=== PATIENT | female | born 1960 | race Caucasian/White ===

== ENCOUNTER → 2016-07-12 | Outpatient (CLI) | payer OTHER ==
[~2016-07-12] MED LIST: FLEXERIL PO; GASTROGRAFIN SOLUTION 30ML (Q9963) As Ordered ONE; ISOVUE-370 76% 100ML VIAL (Q9967) As Ordered ONE; MULTTAB PO; NATU400T PO; WELBUTRIN PO
--- NOTE | 2016-07-13 00:48 | REP ---
Clinical: Generalized abdominal pain. Technique: Axial precontrast, contrast enhanced, and delayed images of the abdomen using oral and 100 ml Isovue 370 intravenous contrast material with coronal and sagittal re-formations. Comparison: 09/10/2007. Findings: The lung bases demonstrate scattered relatively new areas of fibroatelectatic change - some of which specifically in the right middle lobe and lingula have a subtle nodular appearance and may warrant 3-month follow-up chest CT. Liver, spleen, pancreas, bilateral adrenal glands are normal. Kidneys demonstrate stable cortical scarring along the medial aspect of the right kidney as well as scarring and atrophic changes involving the mid to upper pole of the left kidney with 3 cm left renal cyst. The visualized enteric system including stomach and much of the small and large bowel appears normal. Impression: 1. Lung bases demonstrate relatively new areas of fibro atelectatic changes with nodular components at the lingula and right middle lobe. 3-month follow-up chest CT may be warranted. 2. Abdomen appears stable and without acute pathology. Chronic changes include renal scarring and prior cholecystectomy. Signed by Keith Pacheco MD 07/13/2016 12:39 A
== END | disposition home or self-care (01) ==
LOC: M RAD 14:31
PROVIDERS: ATTEND Physician Assistant Medical
DX: J98.4 Other disorders of lung (principal)
CPT/HCPCS: 74170; Q9963; Q9967

== ENCOUNTER → 2016-07-25 | Outpatient (CLI) | payer OTHER ==
[~2016-07-25] MED LIST changes: +BREO1INH INH; +COLA100C PO; -GASTROGRAFIN SOLUTION 30ML (Q9963) As Ordered ONE; +HYDR-4274 PO; -ISOVUE-370 76% 100ML VIAL (Q9967) As Ordered ONE; +LISI10TA4 PO; +OMEP40CA2 PO; +VARE1TA PO; +migraine med
--- NOTE | 2016-07-25 09:01 | REP ---
CT chest without contrast, 07/25/2016: Indication: New areas of fibroatelectatic changes in the right middle lobe and lingula changed on CT, former smoker, COPD, exclude mass. Comparison : CT abdomen and pelvis 07/12/2016 which includes lung bases in field of view, as well as PA and lateral chest 07/04/2016 and 04/30/2012. Technique: 3 mm contiguous spiral axial sections were performed through the chest without contrast. Sagittal and coronal reconstructed images also provided for interpretation. Findings: The thoracic aorta is without aneurysm. The heart is of normal size. There are no coronary artery calcifications. There are no pathologically enlarged mediastinal or hilar lymph nodes. There is moderate hyperinflation and flattening of diaphragms consistent with COPD. 4 mm posterior segment right upper lobe triangular density most compatible with scarring. Small amount of fibroatelectatic changes are seen in the right middle lobe and lingula. 8 x 3 mm irregular density in the lingula is most compatible with scarring. Small amount of fibroatelectatic changes are seen within the posterior segment right upper lobe. Small noncalcified nodule within the lateral basilar segment left lower lobe on image 79 series 201 is unchanged from 07/12/2016. . Small amount of fibroatelectatic changes are noted in lung bases. Visualized portions of the liver, spleen, pancreas are unremarkable. There has been a prior cholecystectomy. Adrenal glands are normal. Left kidney is mostly omitted from view yet is hypoplastic/atrophic in its visualized portions. There are some epidural calcifications within the thoracic thecal sac at L1, T10, T9. Impression:1. Moderate COPD with bibasilar fibroatelectatic changes. 2. 3 mm noncalcified pulmonary nodule lateral basilar segment left lower lobe; 4 mm superior segment posterior apical lower lobe triangular density on image 22 series 201. 8 x 3 mm irregular lingular density. Recommend follow-up CT chest in 3 months for re-evaluation. 3. Atrophic changes within the visualized portions of left kidney. 4. Areas of epidural calcification in thecal sac at L1, T10, T9, likely sequela of old infection or dystrophic calcification. Patient states she had previous hydrocephalus with shunt. Signed by Clarisse Pinto MD 07/25/2016 08:49 P
== END | disposition home or self-care (01) ==
LOC: M RAD 06:49
PROVIDERS: ATTEND Physician Assistant Medical
DX: J44.9 Chronic obstructive pulmonary disease, unspecified (principal); R91.1 Solitary pulmonary nodule

== ENCOUNTER → 2016-07-26 | Outpatient (REF) | payer OTHER ==
[2016-07-26 14:12] LABS: FOLATE 9.6 NG/ML
[2016-07-26 14:26] LABS: FREE T4 1.02 NG/DL (0.76-1.46)
[2016-07-29 08:06] LABS: VITAMIN E LEVEL 9.3 mg/L (5.3-16.8)
== END | disposition home or self-care (01) ==
LOC: M LABNEURO 13:07
PROVIDERS: ATTEND Psychiatry & Neurology Neurology
DX: G43.909 Migraine, unspecified, not intractable, without status migrainosus (principal); G62.9 Polyneuropathy, unspecified

== ENCOUNTER → 2016-08-01 | Day surgery (SDC) | payer OTHER ==
[~2016-08-01] VITALS: Ht 157.5 cm; Wt 66.7 kg
[~2016-08-01] MED LIST changes: +LIDOCAINE 1% MDV 20ML VIAL As Ordered ONE; +LR 1,000 ML IV SCH; +MIDAZOLAM INJ 2 MG/2 ML VIAL (J2250) As Ordered ONE; +ZONI25CA2 PO; +fentaNYL 100 MCG/2 ML INJECTION (J3010) As Ordered ONE
--- NOTE | 2016-08-01 13:29 | RO ---
DATE OF PROCEDURE: 08/01/2016 PREOPERATIVE DIAGNOSIS: Endometrial polyp. POSTOPERATIVE DIAGNOSIS: Endometrial polyp. PROCEDURE: Hysteroscopy, dilation and curettage (D and C). SURGEON: Sukhwinder Walker MD AZURE DEVELOPER: ANESTHESIA: Local with sedation. ESTIMATED BLOOD LOSS: Minimal. FINDINGS: Normal appearing endometrial cavity with the exception of a small anterior fundal endometrial polyp. Uterus was retroverted, normal size and shape. OPERATIVE SUMMARY: The patient taken to the operating room where IV sedation was given. She was prepped and draped in sterile fashion in the dorsal lithotomy position. Speculum was placed in the vagina. The cervix was injected circumferentially with 20 mL of 1% lidocaine. The anterior lip of the cervix was grasped with a tenaculum. The cervix was dilated with tapered dilators. A diagnostic hysteroscope using normal saline as the distention media was placed through the internal os. Visualization of the endometrial cavity revealed findings noted above. Sharp curettage was performed and the specimen, including the polyp, was sent to pathology. All instruments were removed. Polyp appeared to fragment upon curettage. All instruments removed. Sponge and instrument counts were correct.
[2016-08-01 13:38] VITALS: BP 152/78
--- NOTE | 2016-08-01 18:34 | ECGEPIP ---
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
== END ==
LOC: M SDC 10:57
PROVIDERS: ATTEND Specialist
DX: N84.0 Polyp of corpus uteri (principal); I10 Essential (primary) hypertension; K21.9 Gastro-esophageal reflux disease without esophagitis; J44.9 Chronic obstructive pulmonary disease, unspecified; Z91.040 Latex allergy status; Z88.1 Allergy status to other antibiotic agents; Z88.0 Allergy status to penicillin; Z88.2 Allergy status to sulfonamides; Z88.8 Allergy status to other drugs, medicaments and biological substances; Z79.899 Other long term (current) drug therapy; Z87.891 Personal history of nicotine dependence
CPT/HCPCS: 36415; 58558; 85014; 85018; 88305; 93005; J2250; J3010

== ENCOUNTER → 2016-11-09 | Outpatient (CLI) | payer OTHER ==
[~2016-11-09] MED LIST changes: -COLA100C PO; +COLA100C3 PO; +ISOVUE-370 76% 100ML VIAL (Q9967) As Ordered ONE; -LIDOCAINE 1% MDV 20ML VIAL As Ordered ONE; -LR 1,000 ML IV SCH; -MIDAZOLAM INJ 2 MG/2 ML VIAL (J2250) As Ordered ONE; -fentaNYL 100 MCG/2 ML INJECTION (J3010) As Ordered ONE
--- NOTE | 2016-11-10 06:02 | REP ---
Clinical: Follow-up pulmonary nodules. Technique: Axial contrast enhanced images from the thoracic inlet to the upper abdomen using 100 ml Isovue 370 intravenous contrast material with coronal and sagittal re-formations. Comparison: 07/25/2016. Findings: The bilateral lung dotson are relatively well aerated and symmetric, scattered chronic, age-related fibroatelectatic changes are noted predominantly within the right middle lobe and right lower lobe. Minimal chronic emphysematous changes with small scattered bullae are again identified. Previously noted posterior right upper lobe 4 mm density is unchanged and likely represent scarring. Previously identified lingular 7 mm density is unchanged and likely represent scarring. The 3 mm density in the periphery of the left lower lobe was identified on 2007 and now appears minimally calcified suggesting chronic granuloma/scarring. A new 3 mm nodules identified in the posterior periphery of the right upper lobe (image 28) which in all likelihood represents similar chronic progressive changes. No further acute consolidation, significant nodule or mass lesion is appreciated. No pleural effusion/reaction. No pneumothorax. Tracheobronchial tree is patent. Mediastinum demonstrates normal thoracic aorta and heart/pericardium. Surrounding musculoskeletal structures are intact. Thyroid gland is normal. Impression: In all likelihood, and the above-mentioned small scattered densities measuring up to 7 mm likely represent progressive chronic changes. Consider follow-up examination at 9-12 months. Signed by Keith Pacheco MD 11/10/2016 05:53 A
== END ==
LOC: M RAD 16:55
PROVIDERS: ATTEND Physician Assistant Medical
DX: R91.8 Other nonspecific abnormal finding of lung field (principal)
CPT/HCPCS: 71260; Q9967

== ENCOUNTER → 2016-12-30 | Outpatient (CLI) | payer OTHER ==
[~2016-12-30] VITALS: Ht 157.5 cm; Wt 67.1 kg
[~2016-12-30] MED LIST changes: +AMIT50TA PO; +BENA25CA4 PO; +COZA50TA PO; -ISOVUE-370 76% 100ML VIAL (Q9967) As Ordered ONE; +LIDOCAINE 2% INJ 100 MG/5 ML SDV (FOR ANES.) As Ordered ONE; +MIRA33504 PO; +NS 1,000 ML IV ONE; +PROA1AER INH; +PROPOFOL 200 MG/20 ML VIAL As Ordered ONE; +PROT1TAB2 PO; +fentaNYL 100 MCG/2 ML INJECTION (J3010) As Ordered ONE
--- NOTE | 2016-12-30 16:05 | ROOR ---
Patient Name: Sherry Traylor Procedure Date: 12/30/2016 3:50 PM Date of : 1960 Age: 56 Room: [facility] Gender: Female Note Status: Finalized Procedure: Upper GI endoscopy Indications: Dysphagia, Heartburn-resolved on PPI therapy Providers: Cecil MITTAL MD Referring MD: RAFI SANDHU Requesting Provider: Medicines: Monitored Anesthesia Care Complications: No immediate complications. Procedure: Pre-Anesthesia Assessment: - The heart rate, respiratory rate, oxygen saturations, blood pressure, adequacy of pulmonary ventilation, and response to care were monitored throughout the procedure. The Endoscope was introduced through the mouth, and advanced to the second part of duodenum. The upper GI endoscopy was accomplished without difficulty. The patient tolerated the procedure well. Findings: The esophagus was normal. (overall smaller caliber esophagus, but no strictures) The stomach was normal. The examined duodenum was normal. Impression: - Normal esophagus. - Normal stomach. - Normal examined duodenum. - No specimens collected. Recommendation: - Continue present medications.- Use Protonix (pantoprazole) 40 mg PO daily. - Follow an antireflux regimen. - Observe patient's clinical course. - Chew food well, drink plenty of liquids with meals. If applicable, use well fitting dentures for adequate chewing. Cecil Mittal MD Cecil MITTAL MD 12/30/2016 4:04:43 PM This report has been signed electronically. Number of Addenda: 0 Note Initiated On: 12/30/2016 3:50 PM Estimated Blood Loss: Estimated blood loss: none.
--- NOTE | 2016-12-30 16:22 | ROOR ---
Patient Name: Sherry Traylor Procedure Date: 12/30/2016 3:51 PM Date of : 1960 Age: 56 Room: [facility] Gender: Female Note Status: Finalized Procedure: Colonoscopy Indications: Generalized abdominal pain, Constipation Providers: Cecil MITTAL MD Referring MD: RAFI SANDHU Requesting Provider: Medicines: Monitored Anesthesia Care Complications: No immediate complications. Procedure: Pre-Anesthesia Assessment: - The heart rate, respiratory rate, oxygen saturations, blood pressure, adequacy of pulmonary ventilation, and response to care were monitored throughout the procedure. The Colonoscope was introduced through the anus and advanced to 4 cm into the ileum. The colonoscopy was performed without difficulty. The patient tolerated the procedure well. The quality of the bowel preparation was good. Findings: The perianal and digital rectal examinations were normal. A 4 mm polyp was found in the sigmoid colon. The polyp was sessile. The polyp was removed with a cold snare. Resection and retrieval were complete. Multiple medium-mouthed diverticula were found in the sigmoid colon. Internal hemorrhoids were found during retroflexion. The hemorrhoids were moderate. The colon exam was otherwise without abnormality on direct and retroflexion views. The terminal ileum appeared normal. Impression: - The examined portion of the ileum was normal. - One 4 mm polyp in the sigmoid colon, removed with a cold snare. Resected and retrieved. - Mild diverticulosis in the sigmoid colon. - Moderate Internal hemorrhoids. - The colonoscopy was otherwise normal on direct and retroflexion views. Recommendation: - Repeat colonoscopy in 5 years for surveillance. - Telephone endoscopist for pathology results in 2 weeks. - Continue present medications. Cecil Mittal MD Cecil MITTAL MD 12/30/2016 4:22:04 PM This report has been signed electronically. Number of Addenda: 0 Note Initiated On: 12/30/2016 3:51 PM Estimated Blood Loss: Estimated blood loss: none.
[2016-12-30 16:40] VITALS: BP 107/42
== END ==
LOC: M OPP 13:30
PROVIDERS: ATTEND Internal Medicine Gastroenterology
DX: R10.84 Generalized abdominal pain (principal); K57.30 Diverticulosis of large intestine without perforation or abscess without bleeding; D12.5 Benign neoplasm of sigmoid colon; K64.8 Other hemorrhoids; K59.00 Constipation, unspecified; R13.10 Dysphagia, unspecified; R12 Heartburn; I10 Essential (primary) hypertension; K21.9 Gastro-esophageal reflux disease without esophagitis; J44.9 Chronic obstructive pulmonary disease, unspecified; F41.9 Anxiety disorder, unspecified; L27.8 Dermatitis due to other substances taken internally; Z79.899 Other long term (current) drug therapy; Z87.891 Personal history of nicotine dependence; Z88.0 Allergy status to penicillin; Z88.1 Allergy status to other antibiotic agents; Z88.2 Allergy status to sulfonamides; Z91.040 Latex allergy status
CPT/HCPCS: 43235; 45385; 88305; J3010

== ENCOUNTER → 2017-02-04 | Outpatient (CLI) | payer OTHER ==
[~2017-02-04] MED LIST changes: -COLA100C3 PO; +COLA100C5 PO; -HYDR-4274 PO; +HYDR50TA70 PO; -LIDOCAINE 2% INJ 100 MG/5 ML SDV (FOR ANES.) As Ordered ONE; -NS 1,000 ML IV ONE; -PROA1AER INH; +PROAAER10 INH; -PROPOFOL 200 MG/20 ML VIAL As Ordered ONE; -fentaNYL 100 MCG/2 ML INJECTION (J3010) As Ordered ONE
[2017-02-04 08:36] LABS: BASO # 0.1 K/mm3 (0.0-0.2); BASO % 0.9 % (0.0-1.0); EOS # 0.4 K/mm3 (0.0-0.50); EOS % 5.5 % (0.0-3.0); LARGE UNSTAINED CELL # 0.2 K/mm3 (0.0-0.4); LARGE UNSTAINED CELL % 2.1 % (0.0-4.0); MEAN CORPUSCULAR HEMOGLOBIN 32.4 pg (27.0-33.0); MEAN CORPUSCULAR HGB CONC 34.7 g/dl (32.0-36.5); MEAN CORPUSCULAR VOLUME 93.5 fl (80.0-96.0); MONO # 0.4 K/mm3 (0.0-0.8); NEUTROPHILS # 5.2 K/mm3 (1.8-7.7); NEUTROPHILS % 63.5 % (36.0-66.0); PLATELET COUNT, AUTOMATED 386 k/mm3 (150-450); WHITE BLOOD COUNT 8.2 K/mm3 (4.0-10.0)
[2017-02-04 09:13] LABS: ALBUMIN 3.4 GM/DL (3.2-5.2); ALBUMIN/GLOBULIN RATIO 1.06 (1.00-1.93); ALKALINE PHOSPHATASE 161 U/L (45-117); ALT/SGPT 34 U/L (12-78); ANION GAP 9 MEQ/L (8-16); AST/SGOT 20 U/L (15-37); BILIRUBIN,TOTAL 0.2 MG/DL (0.2-1.0); BLOOD UREA NITROGEN 16 MG/DL (7-18); CALCIUM LEVEL 8.7 MG/DL (8.5-10.1); CARBON DIOXIDE LEVEL 27 MEQ/L (21-32); CHLORIDE LEVEL 103 MEQ/L (98-107); CHOLESTEROL LEVEL 178 MG/DL (<200); CREATININE FOR GFR 0.84 MG/DL (0.55-1.02); GLOMERULAR FILTRATION RATE > 60.0 (>51); GLUCOSE, FASTING 88 MG/DL (70-105); POTASSIUM SERUM 4.1 MEQ/L (3.5-5.1); SODIUM LEVEL 139 MEQ/L (136-145); TOTAL PROTEIN 6.6 GM/DL (6.4-8.2); TRIGLYCERIDES LEVEL 97 MG/DL (<150)
== END ==
LOC: M LAB 07:40
PROVIDERS: ATTEND Physician Assistant Medical
DX: I10 Essential (primary) hypertension (principal)

== ENCOUNTER → 2017-07-13 | Outpatient (REF) | payer OTHER ==
[2017-07-13 12:42] LABS: BASO # 0.1 10^3/uL (0.0-0.2); BASO % 1.4 % (0.0-1.0); EOS # 0.4 10^3/uL (0.0-0.50); HEMATOCRIT 44.3 % (36.0-47.0); HEMOGLOBIN 14.8 g/dl (12.0-16.0); IMMATURE GRANULOCYTE % 0.2 % (0-0); LYMPH # 1.7 10^3/uL (1.5-4.5); LYMPH % 27.3 % (24.0-44.0); MEAN CORPUSCULAR HEMOGLOBIN 31.7 pg (27.0-33.0); MEAN CORPUSCULAR HGB CONC 33.4 g/dl (32.0-36.5); MEAN CORPUSCULAR VOLUME 94.9 fl (80.0-96.0); MONO # 0.5 10^3/uL (0.0-0.8); MONO % 7.8 % (0.0-5.0); NEUTROPHILS # 3.5 10^3/uL (1.8-7.7); NEUTROPHILS % 56.3 % (36.0-66.0); PLATELET COUNT, AUTOMATED 435 10^3/uL (150-450); RED BLOOD COUNT 4.67 10^6/uL (4.00-5.40); WHITE BLOOD COUNT 6.3 10^3/uL (4.0-10.0)
[2017-07-13 13:00] LABS: ALBUMIN 3.5 GM/DL (3.2-5.2); ALBUMIN/GLOBULIN RATIO 0.95 (1.00-1.93); ALKALINE PHOSPHATASE 143 U/L (45-117); ALT/SGPT 24 U/L (12-78); ANION GAP 5 MEQ/L (8-16); AST/SGOT 16 U/L (7-37); BILIRUBIN,TOTAL 0.5 MG/DL (0.2-1.0); BLOOD UREA NITROGEN 17 MG/DL (7-18); CALCIUM LEVEL 8.8 MG/DL (8.5-10.1); CARBON DIOXIDE LEVEL 27 MEQ/L (21-32); CHLORIDE LEVEL 108 MEQ/L (98-107); CHOLESTEROL LEVEL 170 MG/DL (<200); CHOLESTEROL RISK RATIO 3.541 (<5); CREATININE FOR GFR 0.82 MG/DL (0.55-1.02); GLOMERULAR FILTRATION RATE > 60.0 (>51); GLUCOSE, FASTING 84 MG/DL (70-105); HDL CHOLESTEROL 48 MG/DL (>40); LDL CHOLESTEROL 105.4 MG/DL (<100); NON-HDL-C 122 MG/DL; POTASSIUM SERUM 4.6 MEQ/L (3.5-5.1); SODIUM LEVEL 140 MEQ/L (136-145); TOTAL PROTEIN 7.2 GM/DL (6.4-8.2); TRIGLYCERIDES LEVEL 83 MG/DL (<150)
== END ==
LOC: M LABDRAW1 10:42
DX: E78.2 Mixed hyperlipidemia (principal); G47.00 Insomnia, unspecified

== ENCOUNTER → 2017-08-18 | Outpatient (CLI) | payer OTHER | LOC: M PAIN 09:45 | DX: M54.5 Low back pain (principal); G89.29 Other chronic pain; M47.816 Spondylosis without myelopathy or radiculopathy, lumbar region; M47.817 Spondylosis without myelopathy or radiculopathy, lumbosacral region; M51.16 Intervertebral disc disorders with radiculopathy, lumbar region; I10 Essential (primary) hypertension; F17.210 Nicotine dependence, cigarettes, uncomplicated; J44.9 Chronic obstructive pulmonary disease, unspecified; Z79.82 Long term (current) use of aspirin; Z79.891 Long term (current) use of opiate analgesic; Z79.899 Other long term (current) drug therapy; Z88.0 Allergy status to penicillin; Z88.1 Allergy status to other antibiotic agents; Z88.2 Allergy status to sulfonamides; Z88.8 Allergy status to other drugs, medicaments and biological substances; Z91.013 Allergy to seafood | CPT/HCPCS: G0463 ==

== ENCOUNTER → 2017-08-29 | Outpatient (REF) | LOC: M SMT 13:29 | DX: M54.5 Low back pain (principal) ==

== ENCOUNTER → 2017-10-17 | Outpatient (CLI) | payer OTHER, MEDICAID | LOC: M PAIN 13:30 | DX: M54.5 Low back pain (principal); G89.29 Other chronic pain; I10 Essential (primary) hypertension; F41.9 Anxiety disorder, unspecified; F17.210 Nicotine dependence, cigarettes, uncomplicated; Z79.51 Long term (current) use of inhaled steroids; Z79.82 Long term (current) use of aspirin; Z79.891 Long term (current) use of opiate analgesic; Z79.899 Other long term (current) drug therapy; Z88.0 Allergy status to penicillin; Z88.2 Allergy status to sulfonamides; Z88.8 Allergy status to other drugs, medicaments and biological substances; Z91.013 Allergy to seafood | CPT/HCPCS: G0463 ==

== ENCOUNTER → 2017-10-31 | Outpatient (CLI) | payer OTHER ==
[2017-10-31 10:12] LABS: HEMATOCRIT 40.5 % (36.0-47.0); HEMOGLOBIN 13.8 g/dl (12.0-15.5); MEAN CORPUSCULAR HEMOGLOBIN 32.2 pg (27.0-33.0); MEAN CORPUSCULAR HGB CONC 34.1 g/dl (32.0-36.5); MEAN CORPUSCULAR VOLUME 94.6 fl (80.0-96.0); PLATELET COUNT, AUTOMATED 486 10^3/uL (150-450); RED BLOOD COUNT 4.28 10^6/uL (4.00-5.40); RED CELL DISTRIBUTION WIDTH 12.9 % (11.5-14.5); WHITE BLOOD COUNT 8.2 10^3/uL (4.0-10.0)
[2017-10-31 11:05] LABS: TOTAL 25(OH) VITAMIN D 17.6 NG/ML (30.0-100.0); TOTAL T3 107.8 NG/DL (60.0-181.0)
[2017-10-31 11:20] LABS: BLOOD UREA NITROGEN 11 MG/DL (7-18); CREATININE FOR GFR 0.86 MG/DL (0.55-1.30); GLUCOSE, FASTING 81 MG/DL (70-100)
[2017-10-31 11:21] LABS: ALBUMIN 3.1 GM/DL (3.2-5.2); ALBUMIN/GLOBULIN RATIO 0.94 (1.00-1.93); ALKALINE PHOSPHATASE 130 U/L (45-117); ALT/SGPT 39 U/L (12-78); ANION GAP 7 MEQ/L (8-16); AST/SGOT 20 U/L (7-37); BILIRUBIN,TOTAL 0.3 MG/DL (0.2-1.0); CALCIUM LEVEL 8.7 MG/DL (8.5-10.1); CARBON DIOXIDE LEVEL 26 MEQ/L (21-32); CHLORIDE LEVEL 110 MEQ/L (98-107); CHOLESTEROL LEVEL 122 MG/DL (<200); CHOLESTEROL RISK RATIO 4.206 (<5); GLOMERULAR FILTRATION RATE > 60.0 (>51); HDL CHOLESTEROL 29 MG/DL (>40); LDL CHOLESTEROL 66.6 MG/DL (<100); NON-HDL-C 93 MG/DL; POTASSIUM SERUM 3.5 MEQ/L (3.5-5.1); SODIUM LEVEL 143 MEQ/L (136-145); THYROXINE (T4) 11.2 UG/DL (4.5-12.0); TOTAL PROTEIN 6.4 GM/DL (6.4-8.2); TRIGLYCERIDES LEVEL 132 MG/DL (<150)
[2017-10-31 16:39] LABS: ESTIMATED AVERAGE GLUCOSE 128 MG/DL (60-110); HEMOGLOBIN A1c 6.1 %
== END ==
LOC: M LAB 09:29
DX: I10 Essential (primary) hypertension (principal)
CPT/HCPCS: 71046

== ENCOUNTER → 2017-11-16 | Outpatient (CLI) | payer OTHER, MEDICAID | LOC: M PAIN 09:15 | DX: M54.5 Low back pain (principal); G89.29 Other chronic pain; I10 Essential (primary) hypertension; F41.9 Anxiety disorder, unspecified; F17.210 Nicotine dependence, cigarettes, uncomplicated; Z79.51 Long term (current) use of inhaled steroids; Z79.82 Long term (current) use of aspirin; Z79.891 Long term (current) use of opiate analgesic; Z79.899 Other long term (current) drug therapy; Z88.0 Allergy status to penicillin; Z88.2 Allergy status to sulfonamides; Z88.5 Allergy status to narcotic agent; Z88.8 Allergy status to other drugs, medicaments and biological substances | CPT/HCPCS: G0463 ==

== ENCOUNTER → 2017-12-14 | Outpatient (CLI) | payer OTHER, MEDICAID | LOC: M PAIN 10:00 | DX: G89.29 Other chronic pain (principal); M54.5 Low back pain; Z79.891 Long term (current) use of opiate analgesic; I10 Essential (primary) hypertension; F41.9 Anxiety disorder, unspecified; G96.19 Other disorders of meninges, not elsewhere classified; F17.210 Nicotine dependence, cigarettes, uncomplicated; Z79.82 Long term (current) use of aspirin; Z79.899 Other long term (current) drug therapy; Z88.1 Allergy status to other antibiotic agents; Z88.2 Allergy status to sulfonamides; Z88.8 Allergy status to other drugs, medicaments and biological substances; Z88.5 Allergy status to narcotic agent | CPT/HCPCS: G0463 ==

== ENCOUNTER → 2018-01-04 | Outpatient (CLI) | payer OTHER, MEDICAID | LOC: M PAIN 11:45 | DX: M54.5 Low back pain (principal); G89.29 Other chronic pain; I10 Essential (primary) hypertension; F41.9 Anxiety disorder, unspecified; F17.210 Nicotine dependence, cigarettes, uncomplicated; Z79.82 Long term (current) use of aspirin; Z79.891 Long term (current) use of opiate analgesic; Z79.899 Other long term (current) drug therapy; Z88.1 Allergy status to other antibiotic agents; Z88.2 Allergy status to sulfonamides; Z88.5 Allergy status to narcotic agent; Z88.8 Allergy status to other drugs, medicaments and biological substances | CPT/HCPCS: G0463 ==

== ENCOUNTER 2018-04-11 00:56 | Inpatient (IN) | payer OTHER, MEDICAID ==
[2018-04-11 03:06] LABS: BASO # 0.1 10^3/uL (0.0-0.2); BASO % 0.3 % (0.0-1.0); EOS # 0.1 10^3/uL (0.0-0.50); EOS % 0.3 % (0.0-3.0); HEMATOCRIT 50.6 % (36.0-47.0); HEMOGLOBIN 17.2 g/dl (12.0-15.5); IMMATURE GRANULOCYTE % 0.5 % (0-3.0); LYMPH # 1.8 10^3/uL (1.5-4.5); MEAN CORPUSCULAR HEMOGLOBIN 31.9 pg (27.0-33.0); MEAN CORPUSCULAR VOLUME 93.9 fl (80.0-96.0); MONO % 4.8 % (0.0-5.0); NEUTROPHILS # 16.7 10^3/uL (1.8-7.7); NEUTROPHILS % 85.1 % (36.0-66.0); PLATELET COUNT, AUTOMATED 505 10^3/uL (150-450); RED BLOOD COUNT 5.39 10^6/uL (4.00-5.40); RED CELL DISTRIBUTION WIDTH 12.4 % (11.5-14.5); WHITE BLOOD COUNT 19.6 10^3/uL (4.0-10.0)
[2018-04-11] MEDS: NS 1,000 ML IV (03:20)
[2018-04-11 03:21] LABS: ALBUMIN 3.6 GM/DL (3.2-5.2); ALBUMIN/GLOBULIN RATIO 0.88 (1.00-1.93); ALKALINE PHOSPHATASE 169 U/L (45-117); ALT/SGPT 34 U/L (12-78); ANION GAP 11 MEQ/L (8-16); AST/SGOT 26 U/L (7-37); BILIRUBIN,DIRECT 0.1 MG/DL (0.0-0.2); BILIRUBIN,TOTAL 0.4 MG/DL (0.2-1.0); BLOOD UREA NITROGEN 20 MG/DL (7-18); CARBON DIOXIDE LEVEL 25 MEQ/L (21-32); CHLORIDE LEVEL 102 MEQ/L (98-107); CREATININE FOR GFR 1.03 MG/DL (0.55-1.30); GLOMERULAR FILTRATION RATE 59.2 (>51); GLUCOSE, FASTING 133 MG/DL (70-100); LIPASE 69 U/L (73-393); SODIUM LEVEL 138 MEQ/L (136-145); TOTAL PROTEIN 7.7 GM/DL (6.4-8.2)
[2018-04-11] MEDS: ONDANSETRON 4MG/2ML VIAL (J2405) IV (03:21)
[2018-04-11] MEDS: MORPHINE 4 MG/ML 1ML VIAL/SYRINGE (J2270) IV ×4 (03:21→21:01)
[2018-04-11] MEDS ORDERED: ISOVUE-370 76% 100ML VIAL (Q9967) As Ordered (04:02)
[2018-04-11] MEDS: HEPARIN SOD (PORCINE) 5000 UNITS/ML VIAL SC ×3 (06:00→21:02)
[2018-04-11] MEDS: LevoFLOXacin IV 750 MG in APPROPRIATE DILUENT 1 EA IV (06:25)
[2018-04-11] MEDS: LR 1,000 ML IV ×4 (06:55→21:02)
[2018-04-11] MEDS: metroNIDAZOLE 500 MG in APPROPRIATE DILUENT 1 EA IV (07:55)
[2018-04-11] MEDS: PANTOPRAZOLE 40MG INJ (PROTONIX) (C9113) IV (09:40)
[2018-04-11] MEDS: KETOROLAC 30 MG/ML VIAL (J1885) IV (13:35)
[2018-04-12] MEDS: KETOROLAC 30 MG/ML VIAL (J1885) IV (02:28)
[2018-04-12] MEDS: ONDANSETRON 4MG/2ML VIAL (J2405) IV (02:28)
[2018-04-12] MEDS: MORPHINE 4 MG/ML 1ML VIAL/SYRINGE (J2270) IV (04:40)
[2018-04-12] MEDS: HEPARIN SOD (PORCINE) 5000 UNITS/ML VIAL SC (05:11)
[2018-04-12] MEDS: LR 1,000 ML IV (05:22)
[2018-04-12 07:22] LABS: BASO # 0.1 10^3/uL (0.0-0.2); BASO % 1.1 % (0.0-1.0); EOS # 0.5 10^3/uL (0.0-0.50); EOS % 6.6 % (0.0-3.0); HEMATOCRIT 37.3 % (36.0-47.0); IMMATURE GRANULOCYTE % 0.3 % (0-3.0); LYMPH % 27.3 % (24.0-44.0); MEAN CORPUSCULAR HEMOGLOBIN 31.9 pg (27.0-33.0); MEAN CORPUSCULAR VOLUME 96.6 fl (80.0-96.0); MONO # 0.5 10^3/uL (0.0-0.8); MONO % 6.6 % (0.0-5.0); NEUTROPHILS # 4.2 10^3/uL (1.8-7.7); NEUTROPHILS % 58.1 % (36.0-66.0); PLATELET COUNT, AUTOMATED 291 10^3/uL (150-450); RED BLOOD COUNT 3.86 10^6/uL (4.00-5.40); RED CELL DISTRIBUTION WIDTH 12.5 % (11.5-14.5); WHITE BLOOD COUNT 7.3 10^3/uL (4.0-10.0)
[2018-04-12 07:26] LABS: HEMOGLOBIN 12.3 g/dl (12.0-15.5)
[2018-04-12 07:41] LABS: ANION GAP 5 MEQ/L (8-16); BLOOD UREA NITROGEN 13 MG/DL (7-18); CALCIUM LEVEL 7.6 MG/DL (8.5-10.1); CARBON DIOXIDE LEVEL 26 MEQ/L (21-32); CHLORIDE LEVEL 109 MEQ/L (98-107); CREATININE FOR GFR 0.78 MG/DL (0.55-1.30); GLOMERULAR FILTRATION RATE > 60.0 (>51); GLUCOSE, FASTING 76 MG/DL (70-100); POTASSIUM SERUM 3.8 MEQ/L (3.5-5.1); SODIUM LEVEL 140 MEQ/L (136-145)
[2018-04-12] MEDS ORDERED: clonazePAM 1 MG TAB PO (08:15)
[2018-04-12] MEDS ORDERED: ALBUTEROL 90 MCG/ACT 8GM HFA INHALER INH (08:15)
[2018-04-12] MEDS: SYMBICORT 160/4.5MCG INHALER 6GM INH (09:00)
[2018-04-12] MEDS: ZONISAMIDE 100 MG CAP (ZONEGRAN) PO (09:00)
[2018-04-12] MEDS: SERTRALINE HCL 50 MG TAB PO (09:08)
[2018-04-12] MEDS: LOSARTAN 50 MG TAB PO (09:08)
[2018-04-12] MEDS: PANTOPRAZOLE 40MG INJ (PROTONIX) (C9113) IV (09:08)
[2018-04-12] MEDS: ANEXSIA, NORCO 7.5MG/325MG TABLET(HYDROCODONE/APAP) PO (09:13)
[2018-04-12] MEDS: FLUBLOK(EGG FREE)(QUAD)INFLUENZA VACC 0.5ML SYRINGE (90682)18YRS&OLDER IM (12:54)
[2018-04-12] MEDS ORDERED: ASPIRIN 81 MG ENTERIC TAB PO (21:00)
[2018-04-12] MEDS ORDERED: AMITRIPTYLINE 50 MG TAB PO (21:00)
== END 2018-04-12 14:26 | disposition home or self-care (01) | DRG 247 ==
LOC: M ED 00:56 → M ED INP 06:55 → M MS4PR 12:06
DX: K56.51 Intestinal adhesions [bands], with partial obstruction (principal); J44.9 Chronic obstructive pulmonary disease, unspecified; F17.210 Nicotine dependence, cigarettes, uncomplicated; M54.9 Dorsalgia, unspecified; K59.09 Other constipation; F41.9 Anxiety disorder, unspecified; R33.9 Retention of urine, unspecified; K57.90 Diverticulosis of intestine, part unspecified, without perforation or abscess without bleeding; Z88.2 Allergy status to sulfonamides; Z88.1 Allergy status to other antibiotic agents; Z91.040 Latex allergy status; Z79.82 Long term (current) use of aspirin; Z79.899 Other long term (current) drug therapy; Z79.891 Long term (current) use of opiate analgesic; Z88.8 Allergy status to other drugs, medicaments and biological substances; Z88.0 Allergy status to penicillin

== ENCOUNTER → 2018-10-24 | Outpatient (REF) | payer OTHER ==
[~2018-10-24] MED LIST changes: +ASPI81TAEC PO; +BEANTAB2 PO; +CLON1TAB8 PO; +CRAN400C PO; +NORC1TAB8 PO; +OXYC15TA76 PO; +SERT-141 PO; +SYMB16INH INH; +VITA50005 PO; +ZONI100C2 PO
[2018-10-24 13:28] LABS: BASO # 0.1 10^3/uL (0.0-0.2); BASO % 1.3 % (0.0-1.0); EOS # 0.1 10^3/uL (0.0-0.50); EOS % 2.6 % (0.0-3.0); HEMATOCRIT 45.2 % (36.0-47.0); HEMOGLOBIN 14.6 g/dl (12.0-15.5); LYMPH # 1.8 10^3/uL (1.5-4.5); LYMPH % 32.4 % (24.0-44.0); MEAN CORPUSCULAR HEMOGLOBIN 31.3 pg (27.0-33.0); MEAN CORPUSCULAR HGB CONC 32.3 g/dl (32.0-36.5); MEAN CORPUSCULAR VOLUME 96.8 fl (80.0-96.0); MONO # 0.4 10^3/uL (0.0-0.8); MONO % 6.7 % (0.0-5.0); NEUTROPHILS # 3.1 10^3/uL (1.8-7.7); NEUTROPHILS % 56.8 % (36.0-66.0); PLATELET COUNT, AUTOMATED 445 10^3/uL (150-450); RED BLOOD COUNT 4.67 10^6/uL (4.00-5.40); WHITE BLOOD COUNT 5.4 10^3/uL (4.0-10.0)
[2018-10-24 13:53] LABS: ALBUMIN 3.8 GM/DL (3.2-5.2); ALT/SGPT 16 U/L (12-78); BILIRUBIN,TOTAL 0.3 MG/DL (0.2-1.0); BLOOD UREA NITROGEN 9 MG/DL (7-18); CALCIUM LEVEL 9.2 MG/DL (8.5-10.1); CARBON DIOXIDE LEVEL 27 MEQ/L (21-32); CHLORIDE LEVEL 105 MEQ/L (98-107); CREATININE FOR GFR 0.84 MG/DL (0.55-1.30); GLOMERULAR FILTRATION RATE > 60.0 (>51); GLUCOSE, FASTING 93 MG/DL (70-100); POTASSIUM SERUM 4.3 MEQ/L (3.5-5.1); SODIUM LEVEL 138 MEQ/L (136-145); TOTAL PROTEIN 7.2 GM/DL (6.4-8.2)
[2018-10-24 18:11] LABS: APPEARANCE, URINE HAZY (CLEAR); BACTERIA, URINE AUTO NEGATIVE (NEGATIVE); BILIRUBIN, URINE AUTO NEGATIVE (NEGATIVE); BLOOD, URINE BLOOD NEGATIVE (NEGATIVE); COLOR, URINE YELLOW (YELLOW); GLUCOSE, URINE (UA) AUTO NEGATIVE (NEGATIVE); KETONE, URINE AUTO NEGATIVE (NEGATIVE); LEUKOCYTE ESTERASE, URINE AUTO NEGATIVE (NEGATIVE); MUCUS, URINE SMALL (NEGATIVE); NITRITE, URINE AUTO NEGATIVE (NEGATIVE); PROTEIN, URINE AUTO NEGATIVE (NEGATIVE); RBC, URINE AUTO 2 /HPF (0-3); SPECIFIC GRAVITY URINE AUTO 1.012 (1.002-1.035); SQUAMOUS EPITHELIAL CELL UR AU 4 /HPF (0-6); UROBILINOGEN, URINE AUTO 0.2 mg/dL (0.0-2.0); WBC, URINE AUTO 2 /HPF (0-3)
== END ==
LOC: M LABNEURO 11:26
PROVIDERS: ATTEND Psychiatry & Neurology Neurology
DX: G03.9 Meningitis, unspecified (principal)

== ENCOUNTER 2019-05-10 12:39 | Emergency (ER) | payer OTHER ==
[~2019-05-10] VITALS: Ht 160 cm; Wt 54.5 kg
[~2019-05-10 12:39] MED LIST changes: -OMEP40CA2 PO; +OMEP40CA97 PO
[2019-05-10 13:49] LABS: MEAN CORPUSCULAR HEMOGLOBIN 32.5 pg (27.0-33.0); MEAN CORPUSCULAR HGB CONC 33.5 g/dl (32.0-36.5); PLATELET COUNT, AUTOMATED 360 10^3/uL (150-450); RED BLOOD COUNT 5.26 10^6/uL (4.00-5.40); WHITE BLOOD COUNT 12.3 10^3/uL (4.0-10.0)
[2019-05-10 13:50] LABS: HEMOGLOBIN 17.1 g/dl (12.0-15.5)
[2019-05-10 14:19] LABS: ACETAMINOPHEN LEVEL < 2.0 UG/ML (10.0-30.0); ALBUMIN 4.1 GM/DL (3.2-5.2); ALT/SGPT 33 U/L (12-78); BILIRUBIN,DIRECT 0.1 MG/DL (0.0-0.2); BILIRUBIN,TOTAL 0.6 MG/DL (0.2-1.0); BLOOD UREA NITROGEN 18 MG/DL (7-18); CALCIUM LEVEL 9.4 MG/DL (8.5-10.1); CARBON DIOXIDE LEVEL 22 MEQ/L (21-32); CHLORIDE LEVEL 107 MEQ/L (98-107); ETHYL ALCOHOL (ETHANOL) < 0.003 % (0.000-0.010); GLOMERULAR FILTRATION RATE > 60.0 (>51); GLUCOSE, FASTING 100 MG/DL (70-100); SALICYLATE LEVEL 2.9 MG/DL (5.0-30.0); SODIUM LEVEL 137 MEQ/L (136-145); TOTAL PROTEIN 7.6 GM/DL (6.4-8.2)
--- NOTE | 2019-05-10 14:40 | REP ---
Chest x-ray: Two views. History: COPD. Comparison study: October 31, 2017. Findings: The lungs are hyperinflated consistent with COPD as before. The pleural angles are sharp. There is mild linear fibrosis in the right lower lobe. Nipple silhouettes project at the bases. The heart is not enlarged. There are clips in right upper quadrant of the abdomen. No acute bony abnormality. Impression: Hyperinflation consistent with COPD. Minimal linear fibrosis right base. Otherwise no acute disease. Electronically Signed by Wilberto Brown MD 05/10/2019 02:32 P
--- NOTE | 2019-05-10 14:43 | REP ---
CT brain: 05/10/2019. Indication: New mental status change. Stroke. Comparison: 03/26/2007. Technique: Unenhanced axial CT images of the brain were obtained from skull base to vertex. Findings: There is no acute intracranial hemorrhage, acute cortical infarction, mass effect or hydrocephalous. The previously described right cerebellopontine angle CSF CSF dense mass is not appreciated on the current study. Minimal prominence of the lateral ventricles is noted likely representing central greater than cortical volume loss. Impression: No acute intracranial process. Electronically Signed by Ayaan Ventura DO 05/10/2019 02:35 P
[2019-05-10] MEDS ORDERED: LOSARTAN 50 MG TAB PO ONE (14:45)
--- NOTE | 2019-05-10 15:33 | ED PDOC ---
Provider Note Phone consultation undertaken for patient, she reports to have some depression symptoms and anxiety symptoms off her current medications. She reportedly has some concerns about choking when taking her pills, that is not been medically worked up. She is been denying suicidal homicidal ideation throughout her stay, collateral information by report from PSA worker indicates that there is no suicidal or para-suicidal activity/statements being made and that the patient does not meet involuntary criteria as she is not demonstrating any behavior or mental status that would demonstrate she is severely impaired. Her reported concerns of choking likely are something to be investigated medically first and then assessed as to whether it is somatic disorder, however, she is not starved or unable to attend to her basic needs. She is amenable to any discharge pl anning and outpatient referrals. In my clinical judgment based on the information above that she does not meet involuntary criteria and declines voluntary admission LUCIE SANDY DO May 10, 2019 15:33
[2019-05-10 15:34] VITALS: BP 157/97
[2019-05-10 17:05] VITALS: BP 127/84
== END 2019-05-10 17:05 | disposition home or self-care (01) ==
LOC: M ED 12:39
DX: F32.9 Major depressive disorder, single episode, unspecified (principal); I10 Essential (primary) hypertension; J44.9 Chronic obstructive pulmonary disease, unspecified; N31.9 Neuromuscular dysfunction of bladder, unspecified; M54.9 Dorsalgia, unspecified; F17.210 Nicotine dependence, cigarettes, uncomplicated; Z81.8 Family history of other mental and behavioral disorders; Z88.0 Allergy status to penicillin; Z88.8 Allergy status to other drugs, medicaments and biological substances; Z88.1 Allergy status to other antibiotic agents; Z91.040 Latex allergy status; Z79.899 Other long term (current) drug therapy; Z79.51 Long term (current) use of inhaled steroids; Z79.82 Long term (current) use of aspirin
CPT/HCPCS: 36415; 70450; 71046; 80048; 80076; 84443; 85027; 99284; G0480

== ENCOUNTER 2019-05-23 14:17 | Emergency (ER) | payer OTHER ==
[~2019-05-23] VITALS: Ht 154.9 cm; Wt 54.5 kg
[2019-05-23] MEDS ORDERED: SERT-138 (14:43)
[2019-05-23] MEDS ORDERED: HYDR-4571 (14:43)
[2019-05-23] MEDS ORDERED: METO25TA4 (14:43)
[2019-05-23] MEDS ORDERED: ROPI1TAB (14:43)
--- NOTE | 2019-05-23 14:56 | REP ---
CT brain: 05/23/2019. Indication: Headache. Comparison: 05/10/2019. Technique: Unenhanced axial CT images of the brain were obtained from skull base to vertex. Findings: There is no acute intracranial hemorrhage, acute cortical infarction or mass effect. The ventricles are stable. The paranasal sinuses and mastoid air cells are clear. Impression: No acute changes compared to 2 weeks earlier. Electronically Signed by Ayaan Ventura DO 05/23/2019 02:47 P
[2019-05-23] MEDS ORDERED: diphenhydrAMINE INJ 50MG/ML VIAL (J1200) IV ONE (16:15)
[2019-05-23] MEDS ORDERED: NS 1,000 ML IV ONE (16:15)
[2019-05-23] MEDS ORDERED: KETOROLAC 30 MG/ML VIAL (J1885) IV ONE (16:15)
[2019-05-23] MEDS ORDERED: ONDANSETRON 4MG/2ML VIAL (J2405) IV ONE (16:15)
[2019-05-23 16:51] LABS: BASO # 0.1 10^3/uL (0.0-0.2); BASO % 0.8 % (0.0-1.0); EOS # 0.3 10^3/uL (0.0-0.5); EOS % 3.7 % (0.0-3.0); HEMOGLOBIN 13.9 g/dl (12.0-15.5); LYMPH # 2.7 10^3/uL (1.5-5.0); LYMPH % 35.6 % (24.0-44.0); MEAN CORPUSCULAR HEMOGLOBIN 32.8 pg (27.0-33.0); MEAN CORPUSCULAR HGB CONC 32.3 g/dl (32.0-36.5); MEAN CORPUSCULAR VOLUME 101.4 fl (80.0-96.0); MONO # 0.7 10^3/uL (0.0-0.8); MONO % 9.7 % (0.0-5.0); NEUTROPHILS # 3.7 10^3/uL (1.5-8.5); NEUTROPHILS % 49.9 % (36.0-66.0); PLATELET COUNT, AUTOMATED 357 10^3/uL (150-450); RED BLOOD COUNT 4.24 10^6/uL (4.00-5.40); WHITE BLOOD COUNT 7.5 10^3/uL (4.0-10.0)
[2019-05-23 17:18] LABS: ALBUMIN 3.2 GM/DL (3.2-5.2); ALT/SGPT 22 U/L (12-78); BILIRUBIN,DIRECT < 0.1 MG/DL (0.0-0.2); BILIRUBIN,TOTAL 0.3 MG/DL (0.2-1.0); BLOOD UREA NITROGEN 16 MG/DL (7-18); CALCIUM LEVEL 9.2 MG/DL (8.5-10.1); CARBON DIOXIDE LEVEL 30 MEQ/L (21-32); CHLORIDE LEVEL 107 MEQ/L (98-107); CREATININE FOR GFR 0.86 MG/DL (0.55-1.30); GLOMERULAR FILTRATION RATE > 60.0 (>51); GLUCOSE, FASTING 85 MG/DL (70-100); LIPASE 163 U/L (73-393); POTASSIUM SERUM 4.7 MEQ/L (3.5-5.1); SODIUM LEVEL 142 MEQ/L (136-145); TOTAL PROTEIN 6.4 GM/DL (6.4-8.2)
[2019-05-23] MEDS ORDERED: ISOVUE-370 76% 100ML VIAL (Q9967) As Ordered ONE (17:26)
--- NOTE | 2019-05-23 20:28 | REPVR ---
PROCEDURE INFORMATION: Exam: CT Abdomen And Pelvis With Contrast Exam date and time: 05/23/2019 4:06 PM Clinical history: 58 years old, female; Abdominal pain; Localized; Left lower quadrant (llq); Additional info: Llq/left groin pain TECHNIQUE: Imaging protocol: Computed tomography of the abdomen and pelvis with intravenous contrast. Radiation optimization: All CT scans at this facility use at least one of these dose optimization techniques: automated exposure control; mA and/or kV adjustment per patient size (includes targeted exams where dose is matched to clinical indication); or iterative reconstruction. Contrast material: ISOVUE 370; Contrast volume: 100 ml; Contrast route: IV; COMPARISON: CT ABD/PEL W/IV CONTRAST ONLY 04/11/2018 4:02 AM FINDINGS: Liver: There is a diffuse decrease in hepatic parenchymal density, consistent with fatty infiltration. Gallbladder and bile ducts: There has been a cholecystectomy. Pancreas: Normal. No ductal dilation. Spleen: Normal. No splenomegaly. Adrenals: Normal. No mass. Kidneys and ureters: Dilated calyces and extrarenal pelvis on the right consistent with a UPJ obstruction. Left renal cyst measures 2.1 cm. Gross hydroureteronephrosis demonstrated on the left without an obstructing mass or calculus demonstrated. Findings may be related to recent passage of a calculus. Stomach and bowel: Unremarkable. No obstruction. No mucosal thickening. Appendix: No evidence of appendicitis. Intraperitoneal space: Unremarkable. No free air. No significant fluid collection. Vasculature: The aorta demonstrates mild atherosclerotic calcification. Decreased density in the proximal superior mesenteric vein likely related to flow-related artifact rather than representing a thrombosis. Lymph nodes: Unremarkable. No enlarged lymph nodes. Bladder: Unremarkable as visualized. Reproductive: Unremarkable as visualized. Bones/joints: Status post L3 and L4 laminectomies. Moderate to severe central spinal stenosis at L4-5. 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 Soft tissues: Unremarkable. IMPRESSION: 1. There is a diffuse decrease in hepatic parenchymal density, consistent with fatty infiltration. 2. There has been a cholecystectomy. 3. Gross hydroureteronephrosis demonstrated on the left without an obstructing mass or calculus demonstrated. Findings may be related to recent passage of a calculus. 4. Decreased density in the proximal superior mesenteric vein likely related to flow-related artifact rather than representing a thrombosis. Electronically signed by: Tej Lozano On 05/23/2019 20:28:34 PM
[2019-05-23] MEDS ORDERED: REGL10TA6 PO (20:40)
[2019-05-23] MEDS ORDERED: KETO10TAB PO (20:40)
[2019-05-23 20:44] VITALS: BP 132/65
[2019-05-23] MEDS ORDERED: NORCO 5/325MG TABLET (BULK FOR ED) PO ONE (20:45)
== END 2019-05-23 20:53 | disposition home or self-care (01) ==
LOC: EDBD 14:17 → M ED 14:17
DX: G43.909 Migraine, unspecified, not intractable, without status migrainosus (principal); N13.39 Other hydronephrosis; R10.9 Unspecified abdominal pain; K76.0 Fatty (change of) liver, not elsewhere classified; I10 Essential (primary) hypertension; J45.909 Unspecified asthma, uncomplicated; K21.9 Gastro-esophageal reflux disease without esophagitis; F31.9 Bipolar disorder, unspecified; G91.9 Hydrocephalus, unspecified; G93.0 Cerebral cysts; R20.0 Anesthesia of skin; F17.210 Nicotine dependence, cigarettes, uncomplicated; Z88.0 Allergy status to penicillin; Z88.1 Allergy status to other antibiotic agents; Z88.8 Allergy status to other drugs, medicaments and biological substances; Z91.040 Latex allergy status; Z79.899 Other long term (current) drug therapy
CPT/HCPCS: 70450; 74177; 80048; 80076; 81001; 83690; 85025; 96374; 96375; 99284; J1200; J1885; J2405; Q9967

== ENCOUNTER → 2019-11-01 | Outpatient (CLI) | payer OTHER ==
[~2019-11-01] MED LIST changes: +HYDR-4571; +KETO10TAB PO; +METO25TA4; +OXYC-1 PO; -OXYC15TA76 PO; +REGL10TA6 PO; +ROPI1TAB3; +SERT-138; +ZONI100C17 PO; -ZONI100C2 PO; +ZONI25CA13 PO; -ZONI25CA2 PO
[2019-11-01 11:12] LABS: BLOOD UREA NITROGEN 18 MG/DL (7-18); CREATININE FOR GFR 0.91 MG/DL (0.55-1.30); GLOMERULAR FILTRATION RATE > 60.0 (>51)
== END ==
LOC: M LAB 09:51
PROVIDERS: ATTEND Psychiatry & Neurology Neurology
DX: I10 Essential (primary) hypertension (principal)

== ENCOUNTER 2020-02-14 15:00 | Emergency (ER) | payer MEDICARE, OTHER ==
[2020-02-14] MEDS ORDERED: LORazepam 2 MG/ML VIAL ONE (20:16)
[2020-02-14] MEDS ORDERED: LORazepam 2 MG/ML VIAL As Ordered ONE (20:16)
--- NOTE | 2020-03-26 14:17 | ECGEPIP ---
SINUS RHYTHM NONSPECIFIC ST & T-WAVE ABNORMALITY BORDERLINE ECG SEE SCANNED DOWNTIME REPORT MTDD
[2020-03-29 17:21] LABS: BASO # 0.1 10^3/uL (0.0-0.2); BASO % 0.4 % (0.0-1.0); EOS # 0.1 10^3/uL (0.0-0.5); EOS % 0.8 % (0.0-3.0); HEMATOCRIT 54.2 % (36.0-47.0); HEMOGLOBIN 18.3 g/dl (12.0-15.5); INR 0.92; LYMPH # 2.1 10^3/uL (1.5-5.0); LYMPH % 17.3 % (24.0-44.0); MEAN CORPUSCULAR HEMOGLOBIN 32.3 pg (27.0-33.0); MEAN CORPUSCULAR HGB CONC 33.8 g/dl (32.0-36.5); MEAN CORPUSCULAR VOLUME 95.8 fl (80.0-96.0); MONO # 0.8 10^3/uL (0.0-0.8); MONO % 6.7 % (0.0-5.0); NEUTROPHILS # 9.1 10^3/uL (1.5-8.5); NEUTROPHILS % 74.4 % (36.0-66.0); PARTIAL THROMBOPLASTIN TIME 29.7 SECONDS (24.2-38.5); PLATELET COUNT, AUTOMATED 323 10^3/uL (150-450); PROTHROMBIN TIME 12.5 SECONDS (12.5-14.3); RED BLOOD COUNT 5.66 10^6/uL (4.00-5.40); WHITE BLOOD COUNT 12.2 10^3/uL (4.0-10.0)
[2020-03-29 18:44] LABS: APPEARANCE, URINE CLEAR (CLEAR); BACTERIA, URINE AUTO NEGATIVE (NEGATIVE); BILIRUBIN, URINE AUTO NEGATIVE (NEGATIVE); BLOOD, URINE BLOOD NEGATIVE (NEGATIVE); COLOR, URINE YELLOW (YELLOW); GLUCOSE, URINE (UA) AUTO NEGATIVE (NEGATIVE); KETONE, URINE AUTO NEGATIVE (NEGATIVE); LEUKOCYTE ESTERASE, URINE AUTO NEGATIVE (NEGATIVE); MUCUS, URINE SMALL (NEGATIVE); NITRITE, URINE AUTO NEGATIVE (NEGATIVE); PROTEIN, URINE AUTO NEGATIVE (NEGATIVE); RBC, URINE AUTO 4 /HPF (0-3); SPECIFIC GRAVITY URINE AUTO 1.021 (1.002-1.035); SQUAMOUS EPITHELIAL CELL UR AU 0 /HPF (0-6); UROBILINOGEN, URINE AUTO 0.2 mg/dL (0.0-2.0); WBC, URINE AUTO 2 /HPF (0-3)
[2020-05-04 11:45] LABS: ALBUMIN 4.3 GM/DL (3.2-5.2); ALT/SGPT 28 U/L (12-78); BILIRUBIN,DIRECT 0.1 MG/DL (0.0-0.2); BILIRUBIN,TOTAL 0.6 MG/DL (0.2-1.0); BLOOD UREA NITROGEN 26 MG/DL (7-18); CALCIUM LEVEL 9.7 MG/DL (8.5-10.1); CARBON DIOXIDE LEVEL 23 MEQ/L (21-32); CHLORIDE LEVEL 107 MEQ/L (98-107); CK-MB VALUE MASS 1.1 NG/ML (<3.6); CPK CREATINE PHOSPHOKINASE 37 U/L (26-192); GLOMERULAR FILTRATION RATE > 60.0 (>51); GLUCOSE, FASTING 88 MG/DL (70-100); MAGNESIUM LEVEL 2.1 MG/DL (1.8-2.4); MB/CK RELATIVE INDEX 2.97 (< OR =4); POTASSIUM SERUM 4.1 MEQ/L (3.5-5.1); SODIUM LEVEL 138 MEQ/L (136-145); TOTAL PROTEIN 7.9 GM/DL (6.4-8.2); TROPONIN I < 0.02 NG/ML (< 0.10)
== END 2020-02-14 21:48 | disposition home or self-care (01) ==
LOC: M ED 15:00
DX: F06.1 Catatonic disorder due to known physiological condition (principal); F33.9 Major depressive disorder, recurrent, unspecified; K57.92 Diverticulitis of intestine, part unspecified, without perforation or abscess without bleeding; Z79.899 Other long term (current) drug therapy; Z79.51 Long term (current) use of inhaled steroids
CPT/HCPCS: 70450; 74021; 80048; 80076; 81001; 82140; 82550; 82553; 83605; 83735; 84443; 84484; 85025; 85610; 85730; 93005; 96374; 99284; J2060

== ENCOUNTER 2020-06-13 10:46 | Emergency (ER) | payer MEDICARE, OTHER ==
[~2020-06-13] VITALS: Ht 154.9 cm; Wt 56.9 kg
[2020-06-13] MEDS ORDERED: PANT40TA29 PO (10:58)
[2020-06-13] MEDS ORDERED: ZONI100C17 PO (10:58)
[2020-06-13 11:42] LABS: BASO % 0.4 % (0.0-1.0); EOS # 0.1 10^3/uL (0.0-0.5); EOS % 1.3 % (0.0-3.0); HEMATOCRIT 46.2 % (36.0-47.0); HEMOGLOBIN 15.2 g/dl (12.0-15.5); LYMPH # 2.1 10^3/uL (1.5-5.0); MEAN CORPUSCULAR HEMOGLOBIN 31.5 pg (27.0-33.0); MEAN CORPUSCULAR HGB CONC 32.9 g/dl (32.0-36.5); MEAN CORPUSCULAR VOLUME 95.7 fl (80.0-96.0); MONO # 0.5 10^3/uL (0.0-0.8); MONO % 6.3 % (0.0-5.0); NEUTROPHILS # 4.9 10^3/uL (1.5-8.5); NEUTROPHILS % 63.7 % (36.0-66.0); PLATELET COUNT, AUTOMATED 368 10^3/uL (150-450); RED BLOOD COUNT 4.83 10^6/uL (4.00-5.40); WHITE BLOOD COUNT 7.6 10^3/uL (4.0-10.0)
[2020-06-13 12:01] LABS: CREATININE FOR GFR 1.05 MG/DL (0.55-1.30); GLOMERULAR FILTRATION RATE 57.5 (>51); POTASSIUM SERUM 4.1 MEQ/L (3.5-5.1)
[2020-06-13 12:02] LABS: CALCIUM LEVEL 9.8 MG/DL (8.5-10.1)
--- NOTE | 2020-06-13 12:20 | REP ---
INDICATION: pain, hx of ovarian cyst. COMPARISON: 16 May 2016.. TECHNIQUE: Transabdominal and transvaginal scanning were performed. FINDINGS: Uterine dimensions are normal at 6.1 x 2.1 by 4.0 cm. Endometrial echo is 0.2 cm thick and centrally placed. No free fluid is seen in the cul-de-sac. Visualized bladder kamara are smooth. Transvaginal imaging demonstrates a fluid collection in the endometrium and a 4 x 5 x 1 mm echogenic structure along the posterior wall of the endometrium. Question small endometrial polyp. The right ovary could not be visualized either transabdominally or transvaginally. No right adnexal mass lesion is seen.. The left ovary dimensions are normal as well at 2.2 x 1.5 x 1.6 cm. It's Doppler flow was normal with resistive index of 0.42. There is a 1.1 cm cyst the left ovary consistent with follicle cyst. Visualized bladder kamara are smooth. Emptying ureteral jets are confirmed on color Doppler interrogation of the bladder no bilaterally. Prevoid bladder volume is calculated at 393 mL. Postvoid there is a 78% postvoid residual, 307 mL. IMPRESSION: Possible 5 mm endometrial polyp with retained endometrial fluid collection, hydrometra. Similar findings were noted in May of 2016. Right ovary not directly visualized. Postvoid bladder residual of 78%.. <Electronically signed by Kenny Brown > 06/13/20 [id number]
[2020-06-13] MEDS ORDERED: LIDOCAINE 2% 5ML JELLY UROJET TOP ONE (12:30)
[2020-06-13] MEDS ORDERED: PYRI1TAB5 PO (13:22)
[2020-06-13] MEDS ORDERED: MACR100C43 PO (13:22)
[2020-06-13] MEDS ORDERED: PHENAZOPYRIDINE 100 MG TAB PO ONE (13:30)
[2020-06-13] MEDS ORDERED: NITROFURANTOIN (MACROBID) 100 MG CAP PO ONE (13:30)
[2020-06-13 13:32] VITALS: BP 132/84
--- NOTE | 2020-06-14 06:35 | ED PDOC ---
Post-Departure Follow-Up certified letter sent to pt re formal read of pelvic us. please see report. need s [employer] follow up. find out who [employer] is and fax and tell pt to fu. if no [employer] check [employer] sheet and refer to [employer] on [employer] sheet and fax-call office to let know referring. Jero Michel MD Jun 14, 2020 06:35
== END 2020-06-13 13:42 | disposition home or self-care (01) ==
LOC: M ED 10:46
DX: N39.0 Urinary tract infection, site not specified (principal); R33.9 Retention of urine, unspecified; N85.8 Other specified noninflammatory disorders of uterus; J44.9 Chronic obstructive pulmonary disease, unspecified; M19.90 Unspecified osteoarthritis, unspecified site; Z88.0 Allergy status to penicillin; Z88.1 Allergy status to other antibiotic agents; Z88.8 Allergy status to other drugs, medicaments and biological substances; Z91.040 Latex allergy status; Z79.899 Other long term (current) drug therapy; Z87.42 Personal history of other diseases of the female genital tract

== ENCOUNTER → 2020-06-15 | Outpatient (CLI) | payer SELFPAY ==
[~2020-06-15] MED LIST changes: +MACR100C43 PO; +PANT40TA29 PO; +PYRI1TAB5 PO
== END ==
LOC: M LABSMTC 14:19
PROVIDERS: ATTEND Pediatrics
DX: Z20.828 Contact with and (suspected) exposure to other viral communicable diseases (principal)

== ENCOUNTER → 2020-09-18 | Outpatient (CLI) | payer MEDICARE ==
[~2020-09-18] MED LIST changes: +ASPI-569 PO; -ASPI81TAEC PO; +LISI10TA22 PO; -LISI10TA4 PO
[2020-09-18 10:12] LABS: ALBUMIN 3.6 GM/DL (3.2-5.2); ALT/SGPT 14 U/L (12-78); BILIRUBIN,TOTAL 0.2 MG/DL (0.2-1.0); BLOOD UREA NITROGEN 18 MG/DL (7-18); CALCIUM LEVEL 9.1 MG/DL (8.5-10.1); CARBON DIOXIDE LEVEL 27 MEQ/L (21-32); CHLORIDE LEVEL 111 MEQ/L (98-107); CHOLESTEROL LEVEL 171 MG/DL (<200); CREATININE FOR GFR 0.86 MG/DL (0.55-1.30); GLOMERULAR FILTRATION RATE > 60.0 (>51); GLUCOSE, FASTING 82 MG/DL (70-100); HDL CHOLESTEROL 50 MG/DL (>40); LDL CHOLESTEROL 111 MG/DL (<100); NON-HDL-C 121 MG/DL; POTASSIUM SERUM 4.5 MEQ/L (3.5-5.1); SODIUM LEVEL 143 MEQ/L (136-145); TOTAL PROTEIN 6.6 GM/DL (6.4-8.2); TRIGLYCERIDES LEVEL 49 MG/DL (<150)
[2020-09-18 17:39] LABS: TOTAL 25(OH) VITAMIN D 36.6 NG/ML (30.0-100.0)
== END ==
LOC: M LAB 08:12
PROVIDERS: ATTEND Nurse Practitioner Family
DX: I10 Essential (primary) hypertension (principal); Z79.899 Other long term (current) drug therapy

== ENCOUNTER → 2020-09-30 | Outpatient (REF) | payer MEDICARE | LOC: M SMT 18:57 | PROVIDERS: ATTEND Urology | DX: N32.9 Bladder disorder, unspecified (principal) ==

== ENCOUNTER → 2020-10-13 | Outpatient (CLI) | payer MEDICARE ==
--- NOTE | 2020-10-13 10:43 | REPMRS ---
Patient History The patient states she has not had a clinical breast exam in over a year. No known family history of cancer. Benign cyst aspiration of the right breast, 1995. 3D TOMOSYNTHESIS WAS PERFORMED. [facility] for [facility].8%. Volpara breast density c. Digital Woman Screen Mammo: October 13, 2020 - Exam #: [id number] Bilateral CC and MLO view(s) were taken. Technologist: RT Flakita Prior study comparison: March 22, 2016, digital woman screen mammo performed at [facility]. March 02, 2015, digital woman screen mammo performed at [facility]. FINDINGS: The breast tissue is heterogeneously dense. This may lower the sensitivity of mammography. There has been no change in the appearance of the mammogram from the prior studies. There is a moderate amount of residual fibroglandular tissue which is fairly symmetric. There is no interval development of dominant mass, areas of architectural distortion, or clustered microcalcification typical of malignancy. Assessment: BI-RADS/ACR category 1 mammogram. Negative Mammogram. Recommendation Routine screening mammogram in 1 year (for women over age 40). This mammogram was interpreted with the aid of an FDA-approved computer-aided dectection system. Electronically Signed By: Louis Christopher MD 10/13/20 104
--- NOTE | 2020-10-13 11:24 | DEXAMM ---
INDICATION: Z13.820 SCREENING FOR OSTEOPOROSIS. COMPARISON: 04/18/2007, 12/23/2003. TECHNIQUE: Bone density was measured using dual-energy x-ray absorptiometry (DEXA). FINDINGS: AP SPINE L1-L4 BMD 0.736 g/cm2 Young Adult T-Score -3.7 Age Matched Z-Score -2.7. LT FEMUR, TOTAL BMD 0.759 g/cm2 Young Adult T-Score -2.0 Age Matched Z-Score -1.2. LT NECK BMD 0.928 g/cm2 Young Adult T-Score -0.8 Age Matched Z-Score 0.4. RT FEMUR, TOTAL BMD 0.823 g/cm2 Young Adult T-Score -1.5 Age Matched Z-Score -0.6. RT NECK BMD 0.917 g/cm2 Young Adult T-Score -0.9 Age Matched Z-Score 0.3. IMPRESSION: There is osteoporosis of the spine. There is normal bone density of the left hip. There is normal bone density of the right hip. The density of the spine has decreased 26.2% since the initial exam on 12/23/2003. The density of the spine decreased 15.5% since most recent exam on 04/18/2007. The density of the left hip has decreased 24.3% since initial exam on 12/23/2003. The density of the left hip has decreased 13.9% since most recent exam on 04/18/2007. The density of the right hip has decreased 26.1% since the initial exam on 12/23/2003. The density of the right hip has decreased 15.2% since the most recent exam on 04/18/2007. FOLLOW-UP: Recommendation for the next bone density exam: 2 years. <Electronically signed by Louis Christopher > 10/13/20 [id number]
== END ==
LOC: M WHC 08:47
PROVIDERS: ATTEND Family Medicine
DX: Z12.31 Encounter for screening mammogram for malignant neoplasm of breast (principal); Z13.820 Encounter for screening for osteoporosis; M81.0 Age-related osteoporosis without current pathological fracture

== ENCOUNTER → 2020-10-29 | Outpatient (REF) | payer MEDICARE ==
[2020-10-29 12:18] LABS: APPEARANCE, URINE HAZY (CLEAR); BACTERIA, URINE AUTO 1+ (NEGATIVE); BILIRUBIN, URINE AUTO NEGATIVE (NEGATIVE); BLOOD, URINE BLOOD 1+ (NEGATIVE); CALCIUM OXALATE CRYSTALS SMALL; COLOR, URINE YELLOW (YELLOW); GLUCOSE, URINE (UA) AUTO NEGATIVE (NEGATIVE); KETONE, URINE AUTO NEGATIVE (NEGATIVE); LEUKOCYTE ESTERASE, URINE AUTO 1+ (NEGATIVE); MUCUS, URINE SMALL (NEGATIVE); NITRITE, URINE AUTO POSITIVE (NEGATIVE); PROTEIN, URINE AUTO NEGATIVE (NEGATIVE); RBC, URINE AUTO 1 /HPF (0-3); SPECIFIC GRAVITY URINE AUTO 1.015 (1.002-1.035); SQUAMOUS EPITHELIAL CELL UR AU 1 /HPF (0-6); UROBILINOGEN, URINE AUTO 0.2 mg/dL (0.0-2.0); WBC, URINE AUTO 23 /HPF (0-3)
== END ==
LOC: M SMT 11:59
PROVIDERS: ATTEND Urology
DX: N30.00 Acute cystitis without hematuria (principal)

== ENCOUNTER → 2020-12-01 | Outpatient (REF) | payer MEDICARE ==
[2020-12-01 14:31] LABS: APPEARANCE, URINE HAZY (CLEAR); BACTERIA, URINE AUTO NEGATIVE (NEGATIVE); BILIRUBIN, URINE AUTO NEGATIVE (NEGATIVE); BLOOD, URINE BLOOD 1+ (NEGATIVE); COLOR, URINE YELLOW (YELLOW); GLUCOSE, URINE (UA) AUTO NEGATIVE (NEGATIVE); KETONE, URINE AUTO NEGATIVE (NEGATIVE); LEUKOCYTE ESTERASE, URINE AUTO 1+ (NEGATIVE); MUCUS, URINE SMALL (NEGATIVE); NITRITE, URINE AUTO POSITIVE (NEGATIVE); PROTEIN, URINE AUTO NEGATIVE (NEGATIVE); RBC, URINE AUTO 0 /HPF (0-3); SPECIFIC GRAVITY URINE AUTO 1.012 (1.002-1.035); SQUAMOUS EPITHELIAL CELL UR AU 1 /HPF (0-6); UROBILINOGEN, URINE AUTO 0.2 mg/dL (0.0-2.0); WBC, URINE AUTO 10 /HPF (0-3)
== END ==
LOC: M SMT 12:59
PROVIDERS: ATTEND Nurse Practitioner Women's Health
DX: N31.9 Neuromuscular dysfunction of bladder, unspecified (principal); Z79.899 Other long term (current) drug therapy
CPT/HCPCS: 51702; 81001; 87088; 87186; G0463

== ENCOUNTER → 2020-12-02 | Outpatient (REF) | payer MEDICARE ==
[~2020-12-02] MED LIST changes: +ALBU8.5H; +METO1TAB87 PO; +NITR100C2 PO; +OMEP40CA4 PO; -OMEP40CA97 PO; +SYMB16INH; +ZOLO100T
== END ==
LOC: M SFHCWAGY 09:57
PROVIDERS: ATTEND Obstetrics & Gynecology
DX: Z12.4 Encounter for screening for malignant neoplasm of cervix (principal)
CPT/HCPCS: 87624; G0123; G0463

== ENCOUNTER → 2020-12-25 | Outpatient (CLI) | payer MEDICARE ==
[~2020-12-25] MED LIST changes: -ALBU8.5H; -METO1TAB87 PO; -NITR100C2 PO; -SYMB16INH; -ZOLO100T
--- NOTE | 2020-12-27 08:48 | REP ---
INDICATION: ENDOMETRIAL POLYP COMPARISON: 06/13/2020 TECHNIQUE: Transabdominal pelvic ultrasound followed by transvaginal examination for better evaluation of the endometrium and adnexa with color Doppler evaluation of the ovaries. FINDINGS: Bladder is unremarkable and measures . Retroverted uterus measures 6.6 x 2.1 x 3.6 cm. The endometrial complex measures 2 mm thickness excluding a small to moderate amount of endocervical fluid. Two suspected polyps are identified measuring 5 mm each. Bilateral ovaries are normal in appearance and vascularity without evidence for torsion. Right ovary measures 3.0 x 1.6 x 1.3 cm; R I = 0.64. Left ovary measures 2.0 x 1.2 x 1.3 cm; R I = 0.50. No pelvic fluid or adnexal mass lesion. IMPRESSION: Endocervical fluid with small 5 mm echogenic suspected endometrial polyps. Findings are relatively similar to prior examination. <Electronically signed by Keith Pacheco > 12/27/20 [id number]
== END ==
LOC: M WHC 09:19
PROVIDERS: ATTEND Obstetrics & Gynecology
DX: N84.0 Polyp of corpus uteri (principal)

== ENCOUNTER → 2021-01-12 | Outpatient (CLI) | payer MEDICARE ==
[~2021-01-12] MED LIST changes: +ALBU8.5H; +METO1TAB87 PO; +NITR100C2 PO; +SYMB16INH; +ZOLO100T
--- NOTE | 2021-01-12 16:58 | REP ---
INDICATION: COUGH/ LABS FIRST. COMPARISON: Multiple TECHNIQUE: PA and lateral FINDINGS: Once again, there is lung field hyperexpansion status quo. There is flattening of the diaphragmatic surface of each lung. The lung dotson are clear and stable. No acute patchy parenchymal opacities or pleural effusions have developed. There is no significant change in appearance of the osseous structures. The cardiomediastinal silhouette is stable. The heart is not enlarged. IMPRESSION: There is no acute cardiopulmonary disease. <Electronically signed by Sam Lai > 01/12/21 [id number]
[2021-01-12 17:34] LABS: BASO # 0.1 10^3/uL (0.0-0.2); BASO % 1.1 % (0.0-1.0); EOS # 0.3 10^3/uL (0.0-0.5); EOS % 3.3 % (0.0-3.0); HEMATOCRIT 42.3 % (36.0-47.0); HEMOGLOBIN 14.1 g/dl (12.0-15.5); LYMPH # 3.1 10^3/uL (1.5-5.0); LYMPH % 35.7 % (24.0-44.0); MEAN CORPUSCULAR HEMOGLOBIN 31.8 pg (27.0-33.0); MEAN CORPUSCULAR HGB CONC 33.3 g/dl (32.0-36.5); MEAN CORPUSCULAR VOLUME 95.5 fl (80.0-96.0); MONO # 0.6 10^3/uL (0.0-0.8); MONO % 7.2 % (2.0-8.0); NEUTROPHILS # 4.6 10^3/uL (1.5-8.5); NEUTROPHILS % 52.4 % (36.0-66.0); PLATELET COUNT, AUTOMATED 363 10^3/uL (150-450); RED BLOOD COUNT 4.43 10^6/uL (4.00-5.40); WHITE BLOOD COUNT 8.8 10^3/uL (4.0-10.0)
[2021-01-12 18:01] LABS: ALBUMIN 3.9 GM/DL (3.2-5.2); BILIRUBIN,TOTAL 0.2 MG/DL (0.2-1.0); CALCIUM LEVEL 9.1 MG/DL (8.5-10.1); CREATININE FOR GFR 1.14 MG/DL (0.55-1.30); GLOMERULAR FILTRATION RATE 52.1 (>51); POTASSIUM SERUM 4.1 MEQ/L (3.5-5.1); TOTAL PROTEIN 7.3 GM/DL (6.4-8.2)
== END ==
LOC: M LAB 16:34
PROVIDERS: ATTEND Family Medicine
DX: R05 Cough (principal)

== ENCOUNTER → 2021-01-15 | Outpatient (CLI) | payer MEDICARE | LOC: M LABSMTC 10:47 | PROVIDERS: ATTEND Anesthesiology | DX: Z01.818 Encounter for other preprocedural examination (principal); Z11.52 Encounter for screening for COVID-19 ==

== ENCOUNTER 2021-01-20 08:28 | Day surgery (SDC) | payer MEDICARE ==
[~2021-01-20] VITALS: Ht 154.9 cm; Wt 53.1 kg
[~2021-01-20 08:28] MED LIST changes: +LR 1,000 ML IV ONE
[2021-01-20 09:08] LABS: HEMATOCRIT 42.4 % (36.0-47.0); HEMOGLOBIN 14.4 g/dl (12.0-15.5); MEAN CORPUSCULAR HEMOGLOBIN 32.1 pg (27.0-33.0); MEAN CORPUSCULAR VOLUME 94.6 fl (80.0-96.0); PLATELET COUNT, AUTOMATED 344 10^3/uL (150-450); RED BLOOD COUNT 4.48 10^6/uL (4.00-5.40); WHITE BLOOD COUNT 7.5 10^3/uL (4.0-10.0)
[2021-01-20] MEDS ORDERED: MIDAZOLAM INJ 2MG/2ML VIAL (J2250 PER 1MG) As Ordered ONE (09:47)
[2021-01-20] MEDS ORDERED: dexameTHASONE 4 MG/ML 1ML VIAL (J1100 PER 1MG) As Ordered ONE (09:47)
[2021-01-20] MEDS ORDERED: ePHEDrine SULFATE 25 MG/5 ML(5MG/ML) SYRINGE As Ordered ONE ×2 (09:47→10:09)
[2021-01-20] MEDS ORDERED: propofoL 200 MG/20 ML VIAL As Ordered ONE (09:47)
[2021-01-20] MEDS ORDERED: LIDOCAINE 2% 100MG/5ML SDV (FOR ANES.) As Ordered ONE (09:47)
[2021-01-20] MEDS ORDERED: KETOROLAC 60MG 2ML VIAL As Ordered ONE (09:47)
[2021-01-20] MEDS ORDERED: ONDANSETRON 4MG/2ML VIAL As Ordered ONE (09:47)
[2021-01-20] MEDS ORDERED: fentaNYL 100 MCG/2 ML INJECTION (J3010) As Ordered ONE (09:47)
--- NOTE | 2021-01-20 10:46 | ROOPDOC ---
[facility] Report Of Operation Report of Operation DATE OF PROCEDURE: 01/20/21 PREPROCEDURE DIAGNOSES: possible endometrial polyp(s) POSTPROCEDURE DIAGNOSES: atrophic endometrial cavity PROCEDURE PERFORMED: Diagnostic hysteroscopy, endometrial biopsy SURGEON: Thomas Watts DO TOWEL ROLLING MACHINE OPERATOR: none ANESTHESIA: General LMA ESTIMATED BLOOD LOSS: Approximately 5 mL. COMPLICATIONS: none REMARKS: Atrophic endometrial cavity, no evidence of endometrial mass SPECIMENS REMOVED: endometrial / endocervical tissue DESCRIPTION OF PROCEDURE: Patient was taken to the operating room with an IV running. She was placed in dorsal supine position. General anesthesia was administered and the airway was secured without any difficulty. She was placed in the high lithotomy position. She was prepared and draped in normal sterile fashion. Timeout was performed per protocol. Bladder was drained with in and out catheter. Sterile speculum was placed with good visualization of the cervix. Anterior lip of the cervix was grasped with single-tooth tenaculum. Downward traction was applied. The cervix was then sequentially dilated with [place] dilators up to a #16. The uterus was sounded to only 5.5 cm. , An endometrial Pipelle was placed to the level of the fundus and suction was applied to obtain tissue. Minimal tissue was obtained . The hysteroscope was placed transcervically into the intrauterine cavity, almost to the level of the fundus about 1 cm short of the fundus so as not to cause a uterine perforation. No intrauterine mass was noted, scarring was noted, probably from her previous sections, and otherwise a surrounding atrophic endometrial cavity. Construction Stonemason images were taken. All instruments were removed from the vagina. Counts were correct per protocol. Excellent hemostasis was noted. Patient was transferred to the PACU in good and stable condition. DO DIMA Livingston JONATHAN R. DO Jan 20, 2021 10:46
[2021-01-20] MEDS ORDERED: fentaNYL 100 MCG/2 ML INJECTION (J3010) IV PRN (10:50)
[2021-01-20] MEDS ORDERED: LR 1,000 ML IV SCH ×2 (10:50)
[2021-01-20] MEDS ORDERED: ONDANSETRON 4MG/2ML VIAL IV PRN (10:50)
[2021-01-20] MEDS: oxyCODONE 5MG TAB PO PRN ×2 (11:02→11:32)
[2021-01-20] MEDS: HYDROMORPHONE HCL 0.5 MG/ 0.5 ML SYRINGE (J1170 PER 1) IV PRN ×2 (11:06→11:11)
[2021-01-20 11:53] VITALS: BP 101/56
== END 2021-01-20 12:10 | disposition home or self-care (01) ==
LOC: M SDC 08:28
PROVIDERS: ATTEND Obstetrics & Gynecology
DX: N85.8 Other specified noninflammatory disorders of uterus (principal); I10 Essential (primary) hypertension; K57.90 Diverticulosis of intestine, part unspecified, without perforation or abscess without bleeding; K21.9 Gastro-esophageal reflux disease without esophagitis; M19.90 Unspecified osteoarthritis, unspecified site; L30.9 Dermatitis, unspecified; F41.9 Anxiety disorder, unspecified; F32.9 Major depressive disorder, single episode, unspecified; G43.909 Migraine, unspecified, not intractable, without status migrainosus; R41.3 Other amnesia; G91.9 Hydrocephalus, unspecified; J44.9 Chronic obstructive pulmonary disease, unspecified; R06.83 Snoring; Z87.440 Personal history of urinary (tract) infections; F17.210 Nicotine dependence, cigarettes, uncomplicated; Z88.1 Allergy status to other antibiotic agents; Z88.0 Allergy status to penicillin; Z88.8 Allergy status to other drugs, medicaments and biological substances; Z88.2 Allergy status to sulfonamides; Z91.040 Latex allergy status; Z79.899 Other long term (current) drug therapy; Z79.51 Long term (current) use of inhaled steroids
CPT/HCPCS: 36415; 58558; 85027; 86850; 86900; 86901; 88305; J1100; J1170; J1885; J2250; J2405; J3010

== ENCOUNTER → 2021-05-26 | Outpatient (REF) | payer MEDICARE ==
[~2021-05-26] MED LIST changes: -LR 1,000 ML IV ONE
== END ==
LOC: M LAB REF 17:04
PROVIDERS: ATTEND Internal Medicine Pulmonary Disease
DX: J44.9 Chronic obstructive pulmonary disease, unspecified (principal)

== ENCOUNTER → 2021-06-21 | Outpatient (CLI) | payer MEDICARE ==
--- NOTE | 2021-06-21 12:48 | REP ---
INDICATION: NICOTINE DEPEND COMPARISON: Chest CT report dated 11/09/2016 TECHNIQUE: Axial noncontrast images from the thoracic inlet to the upper abdomen using low-dose lung screening technique (LDCT). FINDINGS: Lung dotson demonstrate moderate emphysematous changes along with scattered primarily basilar scarring. Small 3 mm nodule in the periphery of the left lower lobe is unchanged compared with 05/23/2019. no acute consolidation, suspicious nodule or mass lesion. No effusion. No pneumothorax. No obvious adenopathy. IMPRESSION: Chronic appearing changes. Emphysematous disease. Lung-RADS category 2 Management recommendations include annual low-dose CT surveillance. <Electronically signed by Keith Pacheco > 06/21/21 [id number]
== END ==
LOC: M RAD 11:02
PROVIDERS: ATTEND Internal Medicine Pulmonary Disease
DX: Z12.2 Encounter for screening for malignant neoplasm of respiratory organs (principal); F17.210 Nicotine dependence, cigarettes, uncomplicated

== ENCOUNTER → 2021-11-12 | Outpatient (CLI) | payer MEDICARE ==
[~2021-11-12] MED LIST changes: -ZONI100C17 PO; +ZONI100C67 PO
[2021-11-12 13:51] LABS: ALBUMIN 3.6 GM/DL (3.2-5.2); ALT/SGPT 12 U/L (12-78); BILIRUBIN,TOTAL 0.2 MG/DL (0.2-1.0); BLOOD UREA NITROGEN 20 MG/DL (7-18); CALCIUM LEVEL 9.4 MG/DL (8.5-10.1); CARBON DIOXIDE LEVEL 29 MEQ/L (21-32); CHLORIDE LEVEL 110 MEQ/L (98-107); CHOLESTEROL LEVEL 187 MG/DL (<200); CREATININE FOR GFR 0.82 MG/DL (0.55-1.30); GLOMERULAR FILTRATION RATE > 60.0 (>51); GLUCOSE, FASTING 82 MG/DL (70-100); HDL CHOLESTEROL 44 MG/DL (>40); LDL CHOLESTEROL 126 MG/DL (<100); NON-HDL-C 143 MG/DL; POTASSIUM SERUM 4.4 MEQ/L (3.5-5.1); SODIUM LEVEL 143 MEQ/L (136-145); TOTAL PROTEIN 6.5 GM/DL (6.4-8.2); TRIGLYCERIDES LEVEL 87 MG/DL (<150)
== END ==
LOC: M PLALAB 09:41
PROVIDERS: ATTEND Nurse Practitioner Family
DX: I10 Essential (primary) hypertension (principal)

== ENCOUNTER 2022-01-05 09:35 | Emergency (ER) | payer MEDICARE ==
[~2022-01-05] VITALS: Ht 154.9 cm; Wt 56.8 kg
[2022-01-05] MEDS ORDERED: COMBAER6 (09:50)
[2022-01-05 10:38] LABS: RSV AMPLIFICATION NEGATIVE (NEGATIVE)
[2022-01-05 11:11] LABS: BASO # 0.1 10^3/uL (0.0-0.2); BASO % 0.7 % (0.0-1.0); EOS # 0.3 10^3/uL (0.0-0.5); EOS % 3.1 % (0.0-3.0); HEMATOCRIT 43.6 % (36.0-47.0); HEMOGLOBIN 14.6 g/dl (12.0-15.5); LYMPH # 1.8 10^3/uL (1.5-5.0); LYMPH % 17.5 % (24.0-44.0); MEAN CORPUSCULAR HEMOGLOBIN 32.2 pg (27.0-33.0); MEAN CORPUSCULAR HGB CONC 33.5 g/dl (32.0-36.5); MEAN CORPUSCULAR VOLUME 96.2 fl (80.0-96.0); MONO # 0.9 10^3/uL (0.0-0.8); MONO % 8.1 % (2.0-8.0); NEUTROPHILS # 7.4 10^3/uL (1.5-8.5); NEUTROPHILS % 70.2 % (36.0-66.0); PLATELET COUNT, AUTOMATED 320 10^3/uL (150-450); RED BLOOD COUNT 4.53 10^6/uL (4.00-5.40); WHITE BLOOD COUNT 10.5 10^3/uL (4.0-10.0)
[2022-01-05 11:13] VITALS: O2SAT 96
[2022-01-05] MEDS ORDERED: ALBUTEROL SULFATE 2.5 MG/0.5 ML INH NEB SOLN NEB ONE (11:30)
[2022-01-05] MEDS ORDERED: NS 1,000 ML IV ONE (11:30)
[2022-01-05] MEDS ORDERED: methylPREDNISolone 125MG 2ML VIAL IV ONE (11:30)
[2022-01-05 11:36] LABS: ALBUMIN 3.5 GM/DL (3.2-5.2); ALT/SGPT 12 U/L (12-78); BILIRUBIN,DIRECT 0.1 MG/DL (0.0-0.2); BILIRUBIN,TOTAL 0.6 MG/DL (0.2-1.0); BLOOD UREA NITROGEN 15 MG/DL (7-18); CALCIUM LEVEL 8.8 MG/DL (8.5-10.1); CARBON DIOXIDE LEVEL 28 MEQ/L (21-32); CHLORIDE LEVEL 109 MEQ/L (98-107); CREATININE FOR GFR 0.79 MG/DL (0.55-1.30); GLOMERULAR FILTRATION RATE > 60.0 (>51); GLUCOSE, FASTING 110 MG/DL (70-100); NT-PRO BNP 215 PG/ML (<125); POTASSIUM SERUM 4.3 MEQ/L (3.5-5.1); SODIUM LEVEL 141 MEQ/L (136-145)
[2022-01-05] MEDS ORDERED: ALBU2.5V10 NEB (12:58)
[2022-01-05] MEDS ORDERED: PRED20TA PO (12:58)
[2022-01-05] MEDS ORDERED: VENTAER INH (12:58)
[2022-01-05 13:13] VITALS: BP 111/54
[2022-01-05] MEDS ORDERED: ALBUTEROL 90 MCG/ACT 8GM HFA INHALER INH ONE (13:20)
== END 2022-01-05 13:27 | disposition home or self-care (01) ==
LOC: M ED 09:35
DX: J44.1 Chronic obstructive pulmonary disease with (acute) exacerbation (principal); R00.1 Bradycardia, unspecified; I10 Essential (primary) hypertension; G35 Multiple sclerosis; Z96.82 Presence of neurostimulator; F31.9 Bipolar disorder, unspecified; K57.92 Diverticulitis of intestine, part unspecified, without perforation or abscess without bleeding; N31.9 Neuromuscular dysfunction of bladder, unspecified; F17.210 Nicotine dependence, cigarettes, uncomplicated; Z82.5 Family history of asthma and other chronic lower respiratory diseases; Z82.49 Family history of ischemic heart disease and other diseases of the circulatory system; Z79.899 Other long term (current) drug therapy; Z88.0 Allergy status to penicillin; Z88.1 Allergy status to other antibiotic agents; Z88.2 Allergy status to sulfonamides; Z88.8 Allergy status to other drugs, medicaments and biological substances; Z91.040 Latex allergy status
CPT/HCPCS: 71045; 80048; 80076; 83880; 84484; 85025; 87631; 93005; 96374; 99284; J2930

== ENCOUNTER 2022-03-12 17:27 | Emergency (ER) | payer MEDICARE ==
[~2022-03-12] VITALS: Ht 154.9 cm; Wt 53.2 kg
[~2022-03-12 17:27] MED LIST changes: +ALBU2.5V10 NEB; +COMBAER6; +PRED20TA PO; +VENTAER INH
[2022-03-12 17:28] VITALS: BP 137/73
[2022-03-12] MEDS ORDERED: BUDE0.5S6 (17:36)
== END 2022-03-12 18:47 | disposition left against medical advice (07) ==
LOC: M ED 17:27
DX: Z53.21 Procedure and treatment not carried out due to patient leaving prior to being seen by health care provider (principal)

== ENCOUNTER 2022-03-14 12:46 | Emergency (ER) | payer MEDICARE ==
[~2022-03-14] VITALS: Ht 154.9 cm; Wt 53.0 kg
[~2022-03-14 12:46] MED LIST changes: +BUDE0.5S6
[2022-03-14 16:33] LABS: BASO # 0.1 10^3/uL (0.0-0.2); BASO % 0.9 % (0.0-1.0); EOS # 0.6 10^3/uL (0.0-0.5); HEMATOCRIT 47.7 % (36.0-47.0); HEMOGLOBIN 15.7 g/dl (12.0-15.5); LYMPH # 1.9 10^3/uL (1.5-5.0); MEAN CORPUSCULAR HEMOGLOBIN 31.6 pg (27.0-33.0); MEAN CORPUSCULAR HGB CONC 32.9 g/dl (32.0-36.5); MONO # 0.7 10^3/uL (0.0-0.8); MONO % 7.8 % (2.0-8.0); NEUTROPHILS # 6.1 10^3/uL (1.5-8.5); NEUTROPHILS % 65.1 % (36.0-66.0); PLATELET COUNT, AUTOMATED 355 10^3/uL (150-450); RED BLOOD COUNT 4.97 10^6/uL (4.00-5.40); WHITE BLOOD COUNT 9.3 10^3/uL (4.0-10.0)
[2022-03-14 17:01] LABS: BLOOD UREA NITROGEN 14 MG/DL (7-18); C REACTIVE PROTEIN QUANTITATIV 0.81 MG/DL (0.00-0.30); CALCIUM LEVEL 9.6 MG/DL (8.5-10.1); CARBON DIOXIDE LEVEL 28 MEQ/L (21-32); CHLORIDE LEVEL 109 MEQ/L (98-107); CREATININE FOR GFR 0.79 MG/DL (0.55-1.30); GLOMERULAR FILTRATION RATE > 60.0 (>51); GLUCOSE, FASTING 94 MG/DL (70-100); POTASSIUM SERUM 4.6 MEQ/L (3.5-5.1); SODIUM LEVEL 139 MEQ/L (136-145)
[2022-03-14] MEDS ORDERED: methylPREDNISolone 125MG 2ML VIAL IV ONE (17:05)
[2022-03-14] MEDS ORDERED: PRED20TA PO (17:14)
[2022-03-14 17:19] LABS: ERYTHROCYTE SEDIMENTATION RATE 5 mm/hr (0-30)
[2022-03-14 17:25] VITALS: BP 146/70
== END 2022-03-14 17:26 | disposition home or self-care (01) ==
LOC: M ED 12:46
DX: R21 Rash and other nonspecific skin eruption (principal); I10 Essential (primary) hypertension; G91.9 Hydrocephalus, unspecified; Z98.2 Presence of cerebrospinal fluid drainage device; L30.9 Dermatitis, unspecified; Z91.040 Latex allergy status; Z88.0 Allergy status to penicillin; Z88.2 Allergy status to sulfonamides; Z88.1 Allergy status to other antibiotic agents; Z88.8 Allergy status to other drugs, medicaments and biological substances; Z79.899 Other long term (current) drug therapy
CPT/HCPCS: 80048; 85025; 85652; 86140; 96374; 99283; J2930

== ENCOUNTER 2022-03-31 08:58 | Inpatient (IN) | payer MEDICARE ==
[~2022-03-31] VITALS: Ht 160 cm; Wt 51.6 kg
[~2022-03-31 08:58] MED LIST changes: -BUDE0.5S6; +BUDE0.5S6 INH; -COMBAER6; +COMBAER6 INH; -ZOLO100T; +ZOLO100T PO
[2022-03-31] MEDS ORDERED: NS 500 ML IV ONE (09:15)
[2022-03-31] MEDS ORDERED: ISOVUE-370 76% 100ML VIAL As Ordered ONE (09:27)
[2022-03-31 09:43] LABS: BASO # 0.1 10^3/uL (0.0-0.2); EOS # 0.4 10^3/uL (0.0-0.5); HEMATOCRIT 48.9 % (36.0-47.0); HEMOGLOBIN 16.3 g/dl (12.0-15.5); LYMPH # 2.1 10^3/uL (1.5-5.0); LYMPH % 26.1 % (24.0-44.0); MEAN CORPUSCULAR HGB CONC 33.3 g/dl (32.0-36.5); MEAN CORPUSCULAR VOLUME 96.1 fl (80.0-96.0); MONO # 0.6 10^3/uL (0.0-0.8); MONO % 7.9 % (2.0-8.0); NEUTROPHILS # 4.7 10^3/uL (1.5-8.5); NEUTROPHILS % 59.7 % (36.0-66.0); PLATELET COUNT, AUTOMATED 280 10^3/uL (150-450); RED BLOOD COUNT 5.09 10^6/uL (4.00-5.40); WHITE BLOOD COUNT 7.8 10^3/uL (4.0-10.0)
[2022-03-31] MEDS ORDERED: LIDOCAINE 2% 5ML JELLY UROJET TOP ONE (09:50)
[2022-03-31 09:58] LABS: INR 0.84; PROTHROMBIN TIME 11.9 SECONDS (12.7-14.5)
[2022-03-31 10:21] LABS: CK-MB VALUE MASS < 1.0 NG/ML (<3.6); CPK CREATINE PHOSPHOKINASE 41 U/L (26-192); MB/CK RELATIVE INDEX 2.44 (< OR =4)
[2022-03-31 10:32] LABS: ACETAMINOPHEN LEVEL < 2.0 UG/ML (10.0-30.0); ALBUMIN 3.9 GM/DL (3.2-5.2); ALT/SGPT 18 U/L (12-78); BILIRUBIN,DIRECT 0.1 MG/DL (0.0-0.2); BILIRUBIN,TOTAL 0.6 MG/DL (0.2-1.0); ETHYL ALCOHOL (ETHANOL) < 0.003 % (0.000-0.010); SALICYLATE LEVEL 2.9 MG/DL (5.0-30.0); TOTAL PROTEIN 7.4 GM/DL (6.4-8.2)
[2022-03-31 10:39] LABS: RSV AMPLIFICATION NEGATIVE (NEGATIVE)
[2022-03-31] MEDS ORDERED: methylPREDNISolone 125MG 2ML VIAL IV ONE (10:50)
[2022-03-31] MEDS ORDERED: diphenhydrAMINE 25MG CAP PO ONE (10:50)
[2022-03-31] MEDS ORDERED: LevoFLOXacin IV 500 MG in IV 1 EA IV ONE (11:00)
[2022-03-31 11:26] LABS: AMPHETAMINES LEVEL URINE NEGATIVE (NEGATIVE); BARBITURATES URINE NEGATIVE (NEGATIVE); BENZODIAZEPINES URINE NEGATIVE (NEGATIVE); CANNABINOIDS URINE POSITIVE (NEGATIVE); COCAINE METABOLITE URINE NEGATIVE (NEGATIVE); METHADONE URINE NEGATIVE (NEGATIVE); OPIATES URINE NEGATIVE (NEGATIVE); PHENCYCLIDINE URINE NEGATIVE (NEGATIVE)
[2022-03-31] MEDS ORDERED: ALBU2.5V10 INH (11:37)
[2022-03-31] MEDS ORDERED: VENTAER INH (11:37)
[2022-03-31] MEDS ORDERED: patient note (11:41)
[2022-03-31] MEDS ORDERED: HOME MED LIST COMPLETE! XX SCH (11:45)
[2022-03-31] MEDS ORDERED: MAALOX 30 ML SUSP *UDC PO PRN (12:00)
[2022-03-31] MEDS ORDERED: ACETAMINOPHEN TAB 650MG DOSE (2X325MG) PO PRN (12:00)
[2022-03-31] MEDS ORDERED: MOM 30ML SUSPENSION UDC PO PRN (12:00)
[2022-03-31 14:19] VITALS: BP 123/74
[2022-03-31] MEDS: HEPARIN SOD (PORCINE) 5000UNITS/ML 1ML VIAL/SYRINGE SC SCH ×2 (14:25→21:37)
[2022-03-31 14:52] LABS: BLOOD UREA NITROGEN 14 MG/DL (7-18); CALCIUM LEVEL 9.1 MG/DL (8.5-10.1); CARBON DIOXIDE LEVEL 21 MEQ/L (21-32); CHLORIDE LEVEL 109 MEQ/L (98-107); CREATININE FOR GFR 0.78 MG/DL (0.55-1.30); GLOMERULAR FILTRATION RATE > 60.0 (>51); GLUCOSE, FASTING 87 MG/DL (70-100); POTASSIUM SERUM 4.6 MEQ/L (3.5-5.1); SODIUM LEVEL 135 MEQ/L (136-145)
[2022-03-31] MEDS ORDERED: BUDESONIDE 0.5 MG/2 ML INHALATION SUSPENSION INH PRN (15:05)
[2022-03-31] MEDS ORDERED: ALBUTEROL SULFATE 2.5 MG/0.5 ML INH NEB SOLN INH PRN (15:05)
[2022-03-31] MEDS ORDERED: ALBUTEROL 90 MCG/ACT 8GM HFA INHALER INH PRN (15:05)
[2022-03-31] MEDS: D5W/0.45% SODIUM CHLORIDE 1,000 ML IV SCH (15:44)
[2022-03-31 16:00] VITALS: BP 120/67
[2022-03-31] MEDS ORDERED: LORazepam 0.5 MG TAB PO ONE (17:05)
[2022-03-31 20:06] VITALS: BP 119/75
[2022-03-31] MEDS: COMBIVENT RESPIMAT 100-20MCG INHALER 4GM INH SCH (20:33)
[2022-03-31] MEDS: METOPROLOL TART 25 MG TABLET PO SCH (21:00)
[2022-03-31] MEDS: DOCUSATE SODIUM 100MG CAPSULE PO SCH (21:40)
[2022-04-01 00:19] VITALS: BP 130/74
[2022-04-01] MEDS: COMBIVENT RESPIMAT 100-20MCG INHALER 4GM INH SCH ×4 (01:29→19:40)
[2022-04-01 03:43] VITALS: BP 114/59
[2022-04-01] MEDS: D5W/0.45% SODIUM CHLORIDE 1,000 ML IV SCH ×2 (04:26→15:43)
[2022-04-01] MEDS: HEPARIN SOD (PORCINE) 5000UNITS/ML 1ML VIAL/SYRINGE SC SCH ×3 (05:25→20:53)
[2022-04-01 07:34] LABS: HEMATOCRIT 41.3 % (36.0-47.0); MEAN CORPUSCULAR HEMOGLOBIN 31.9 pg (27.0-33.0); MEAN CORPUSCULAR HGB CONC 33.4 g/dl (32.0-36.5); MEAN CORPUSCULAR VOLUME 95.4 fl (80.0-96.0); PLATELET COUNT, AUTOMATED 261 10^3/uL (150-450); RED BLOOD COUNT 4.33 10^6/uL (4.00-5.40); WHITE BLOOD COUNT 10.3 10^3/uL (4.0-10.0)
[2022-04-01 07:40] LABS: HEMOGLOBIN 13.8 g/dl (12.0-15.5)
[2022-04-01 07:43] LABS: BLOOD UREA NITROGEN 16 MG/DL (7-18); CALCIUM LEVEL 8.4 MG/DL (8.5-10.1); CARBON DIOXIDE LEVEL 25 MEQ/L (21-32); CHLORIDE LEVEL 108 MEQ/L (98-107); CREATININE FOR GFR 0.83 MG/DL (0.55-1.30); GLOMERULAR FILTRATION RATE > 60.0 (>51); GLUCOSE, FASTING 99 MG/DL (70-100); POTASSIUM SERUM 3.9 MEQ/L (3.5-5.1); SODIUM LEVEL 137 MEQ/L (136-145)
[2022-04-01 08:00] VITALS: BP 113/61
[2022-04-01] MEDS: METOPROLOL TART 25 MG TABLET PO SCH ×2 (09:34→20:53)
[2022-04-01] MEDS: DOCUSATE SODIUM 100MG CAPSULE PO SCH ×3 (09:35→20:55)
[2022-04-01] MEDS: diphenhydrAMINE CREAM 30GM TOP PRN (09:35)
[2022-04-01] MEDS ORDERED: predniSONE 20 MG TAB PO ONE (10:00)
[2022-04-01] MEDS ORDERED: LevoFLOXacin IV 750 MG in IV 1 EA IV SCH (11:00)
[2022-04-01] MEDS: LevoFLOXacin 750 MG TABLET PO SCH (12:03)
[2022-04-01 12:04] VITALS: BP 111/63
[2022-04-01] MEDS ORDERED: QUEtiapine FUMARATE 25 MG TAB PO PRN (12:55)
[2022-04-01] MEDS: SERTRALINE HCL 50 MG TAB PO SCH (15:42)
[2022-04-01 16:00] VITALS: BP 125/72
[2022-04-01 19:44] VITALS: BP 142/68
[2022-04-02 00:02] VITALS: BP 138/66
[2022-04-02] MEDS: D5W/0.45% SODIUM CHLORIDE 1,000 ML IV SCH ×2 (00:28→11:45)
[2022-04-02] MEDS: diphenhydrAMINE CREAM 30GM TOP PRN (01:19)
[2022-04-02] MEDS: COMBIVENT RESPIMAT 100-20MCG INHALER 4GM INH SCH ×3 (02:00→14:35)
[2022-04-02 03:46] VITALS: BP 136/60
[2022-04-02] MEDS: LevoFLOXacin 750 MG TABLET PO SCH (05:23)
[2022-04-02] MEDS: HEPARIN SOD (PORCINE) 5000UNITS/ML 1ML VIAL/SYRINGE SC SCH ×2 (05:23→14:00)
[2022-04-02 07:00] LABS: BASO # 0.1 10^3/uL (0.0-0.2); BASO % 1.2 % (0.0-1.0); EOS # 0.2 10^3/uL (0.0-0.5); HEMATOCRIT 41.3 % (36.0-47.0); HEMOGLOBIN 13.5 g/dl (12.0-15.5); LYMPH # 2.1 10^3/uL (1.5-5.0); LYMPH % 36.9 % (24.0-44.0); MEAN CORPUSCULAR HEMOGLOBIN 31.8 pg (27.0-33.0); MEAN CORPUSCULAR HGB CONC 32.7 g/dl (32.0-36.5); MEAN CORPUSCULAR VOLUME 97.4 fl (80.0-96.0); MONO # 0.4 10^3/uL (0.0-0.8); MONO % 7.8 % (2.0-8.0); NEUTROPHILS # 2.9 10^3/uL (1.5-8.5); NEUTROPHILS % 50.7 % (36.0-66.0); PLATELET COUNT, AUTOMATED 218 10^3/uL (150-450); RED BLOOD COUNT 4.24 10^6/uL (4.00-5.40); WHITE BLOOD COUNT 5.6 10^3/uL (4.0-10.0)
[2022-04-02 07:40] LABS: BLOOD UREA NITROGEN 12 MG/DL (7-18); CALCIUM LEVEL 8.4 MG/DL (8.5-10.1); CARBON DIOXIDE LEVEL 22 MEQ/L (21-32); CHLORIDE LEVEL 111 MEQ/L (98-107); CREATININE FOR GFR 0.72 MG/DL (0.55-1.30); GLOMERULAR FILTRATION RATE > 60.0 (>51); GLUCOSE, FASTING 88 MG/DL (70-100); POTASSIUM SERUM 3.7 MEQ/L (3.5-5.1); SODIUM LEVEL 137 MEQ/L (136-145)
[2022-04-02] MEDS ORDERED: BACTRIM 160MG/800MG DS TAB PO SCH (09:00)
[2022-04-02] MEDS ORDERED: predniSONE 10 MG TAB PO ONE (09:00)
[2022-04-02 09:42] VITALS: BP 136/60
[2022-04-02] MEDS: SERTRALINE HCL 50 MG TAB PO SCH (09:42)
[2022-04-02] MEDS: DOCUSATE SODIUM 100MG CAPSULE PO SCH (09:42)
[2022-04-02] MEDS: METOPROLOL TART 25 MG TABLET PO SCH (09:42)
[2022-04-02 12:16] VITALS: BP 135/70
[2022-04-02] MEDS ORDERED: PRED10TA2 PO (14:28)
[2022-04-02] MEDS ORDERED: BACTDSTA PO (14:28)
[2022-04-02] MEDS ORDERED: SERT50TA29 PO (14:28)
[2022-04-03] MEDS ORDERED: predniSONE 20 MG TAB PO ONE (09:00)
[2022-04-04] MEDS ORDERED: predniSONE 10 MG TAB PO ONE (09:00)
== END 2022-04-02 16:21 | disposition home or self-care (01) | DRG 71 ==
LOC: M ED 08:58 → M ED INP 11:57 → M PCU 14:04
PROVIDERS: ADMIT Internal Medicine; ATTEND Internal Medicine
DX: G93.41 Metabolic encephalopathy (principal); N39.0 Urinary tract infection, site not specified; G91.9 Hydrocephalus, unspecified; M54.9 Dorsalgia, unspecified; J44.9 Chronic obstructive pulmonary disease, unspecified; K59.09 Other constipation; I10 Essential (primary) hypertension; F41.9 Anxiety disorder, unspecified; K57.90 Diverticulosis of intestine, part unspecified, without perforation or abscess without bleeding; L30.9 Dermatitis, unspecified; F17.200 Nicotine dependence, unspecified, uncomplicated; R33.9 Retention of urine, unspecified; B96.1 Klebsiella pneumoniae [K. pneumoniae] as the cause of diseases classified elsewhere; Z90.49 Acquired absence of other specified parts of digestive tract; Z79.899 Other long term (current) drug therapy; Z88.0 Allergy status to penicillin; Z88.1 Allergy status to other antibiotic agents; Z86.010 Personal history of colon polyps; Z88.8 Allergy status to other drugs, medicaments and biological substances; Z88.2 Allergy status to sulfonamides; Z91.040 Latex allergy status

== ENCOUNTER → 2022-07-28 | Outpatient (CLI) | payer MEDICARE ==
[~2022-07-28] MED LIST changes: +ALBU2.5V10 INH; +BACTDSTA PO; +PRED10TA2 PO; +SERT50TA29 PO; +patient note
== END ==
LOC: M RAD 10:49
PROVIDERS: ATTEND Internal Medicine Pulmonary Disease
DX: Z12.2 Encounter for screening for malignant neoplasm of respiratory organs (principal); Z87.891 Personal history of nicotine dependence

== ENCOUNTER → 2022-08-22 | Outpatient (REF) | payer MEDICARE | LOC: M SFHCDERM 14:16 | PROVIDERS: ATTEND Physician Assistant | DX: D22.5 Melanocytic nevi of trunk (principal) | CPT/HCPCS: 11102; 11103; 88305; G0463 ==

== ENCOUNTER → 2022-12-05 | Outpatient (CLI) | payer MEDICARE ==
[~2022-12-05] MED LIST changes: -COZA50TA PO; +LOSA-528 PO
[2022-12-05 11:14] LABS: BASO # 0.1 10^3/uL (0.0-0.2); BASO % 0.9 % (0.0-1.0); EOS # 0.6 10^3/uL (0.0-0.5); EOS % 7.4 % (0.0-3.0); HEMATOCRIT 46.2 % (36.0-47.0); HEMOGLOBIN 15.4 g/dl (12.0-15.5); LYMPH # 1.7 10^3/uL (1.5-5.0); LYMPH % 21.9 % (24.0-44.0); MEAN CORPUSCULAR HEMOGLOBIN 31.7 pg (27.0-33.0); MEAN CORPUSCULAR HGB CONC 33.3 g/dl (32.0-36.5); MEAN CORPUSCULAR VOLUME 95.1 fl (80.0-96.0); MONO # 0.6 10^3/uL (0.0-0.8); NEUTROPHILS # 4.8 10^3/uL (1.5-8.5); NEUTROPHILS % 61.7 % (36.0-66.0); PLATELET COUNT, AUTOMATED 326 10^3/uL (150-450); RED BLOOD COUNT 4.86 10^6/uL (4.00-5.40); WHITE BLOOD COUNT 7.8 10^3/uL (4.0-10.0)
[2022-12-05 11:41] LABS: ALBUMIN 3.7 G/DL (3.2-5.2); ALKALINE PHOSPHATASE 132 U/L (46-116); ALT/SGPT 15 U/L (7.0-40); AST/SGOT 18 U/L (<34); BILIRUBIN,TOTAL 0.3 MG/DL (0.3-1.2); BLOOD UREA NITROGEN 13 MG/DL (9-23); CALCIUM LEVEL 9.3 MG/DL (8.3-10.6); CARBON DIOXIDE LEVEL 28 MMOL/L (20-31); CHLORIDE LEVEL 105 MMOL/L (98-107); CHOLESTEROL LEVEL 189 MG/DL (<200); CHOLESTEROL RISK RATIO 4.11 (<5); CREATININE FOR GFR 0.88 MG/DL (0.55-1.30); GLOMERULAR FILTRATION RATE > 60.0 (>45); GLUCOSE, FASTING 96 MG/DL (74-106); HDL CHOLESTEROL 45.9 MG/DL (>40); LDL CHOLESTEROL 124.3 MG/DL (<100); NON-HDL-C 143.1 MG/DL; POTASSIUM SERUM 4.6 MMOL/L (3.5-5.1); SODIUM LEVEL 139 MMOL/L (136-145); TOTAL PROTEIN 6.9 G/DL (5.7-8.2); TRIGLYCERIDES LEVEL 94 MG/DL (<150)
== END ==
LOC: M LAB 10:54
PROVIDERS: ATTEND Nurse Practitioner Family
DX: Z00.00 Encounter for general adult medical examination without abnormal findings (principal); E78.00 Pure hypercholesterolemia, unspecified

== ENCOUNTER → 2022-12-08 | Outpatient (CLI) | payer MEDICARE | LOC: M WHC 12:51 | PROVIDERS: ATTEND Nurse Practitioner Family | DX: Z12.31 Encounter for screening mammogram for malignant neoplasm of breast (principal); M81.0 Age-related osteoporosis without current pathological fracture ==

== ENCOUNTER 2023-06-01 16:21 | Emergency (ER) | payer MEDICARE ==
[~2023-06-01 16:21] MED LIST changes: -ROPI1TAB3; +ROPI1TAB73
[2023-06-01 16:50] VITALS: O2SAT 94
[2023-06-01] MEDS: IPRATROPIUM 0.5MG/ALBUTEROL 2.5MG INH SOL UD 3ML (DUONEB) NEB PRN ×3 (16:55→17:44)
[2023-06-01 17:10] LABS: ABG BASE EXCESS -3.2 (-2.0-2.0); ABG HCO3 19.8 MMOL/L (22.0-26.0); ABG O2 SATURATION 93.1 % (95.0-99.0); ABG PARTIAL PRESSURE CO2 30.3 mmHg (35.0-45.0); ABG PARTIAL PRESSURE O2 64.1 mmHg (75.0-100.0); ABG STANDARD HCO3 21.7 MMOL/L. (22.0-26.0); ABG TOTAL CO2 20.7 MMOL/L (23.0-31.0); ABG pH (ARTERIAL) 7.432 UNITS (7.350-7.450)
[2023-06-01 17:15] LABS: BASO # 0.1 10^3/uL (0.0-0.2); BASO % 0.6 % (0.0-1.0); EOS # 0.3 10^3/uL (0.0-0.5); EOS % 3.3 % (0.0-3.0); HEMATOCRIT 40.9 % (36.0-47.0); HEMOGLOBIN 14.1 g/dl (12.0-15.5); LYMPH # 1.9 10^3/uL (1.5-5.0); LYMPH % 18.5 % (24.0-44.0); MEAN CORPUSCULAR HEMOGLOBIN 32.1 pg (27.0-33.0); MEAN CORPUSCULAR HGB CONC 34.5 g/dl (32.0-36.5); MEAN CORPUSCULAR VOLUME 93.2 fl (80.0-96.0); MONO # 0.8 10^3/uL (0.0-0.8); MONO % 7.4 % (2.0-8.0); NEUTROPHILS # 7.1 10^3/uL (1.5-8.5); NEUTROPHILS % 69.9 % (36.0-66.0); PLATELET COUNT, AUTOMATED 355 10^3/uL (150-450); RED BLOOD COUNT 4.39 10^6/uL (4.00-5.40); WHITE BLOOD COUNT 10.2 10^3/uL (4.0-10.0)
[2023-06-01 17:30] LABS: BLOOD UREA NITROGEN 16 MG/DL (9-23); CARBON DIOXIDE LEVEL 24 MMOL/L (20-31); CHLORIDE LEVEL 109 MMOL/L (98-107); CREATININE FOR GFR 0.68 MG/DL (0.55-1.30); GLOMERULAR FILTRATION RATE > 60.0 (>45); GLUCOSE, FASTING 100 MG/DL (74-106); POTASSIUM SERUM 4.1 MMOL/L (3.5-5.1); SODIUM LEVEL 140 MMOL/L (136-145)
[2023-06-01 18:47] VITALS: BP 126/71; TEMP 98.4; O2SAT 93
== END 2023-06-01 19:02 | disposition home or self-care (01) ==
LOC: EDBD 16:21 → M ED 16:21
DX: J44.1 Chronic obstructive pulmonary disease with (acute) exacerbation (principal); I10 Essential (primary) hypertension; F41.9 Anxiety disorder, unspecified; F17.200 Nicotine dependence, unspecified, uncomplicated; Z79.899 Other long term (current) drug therapy; Z88.1 Allergy status to other antibiotic agents; Z88.0 Allergy status to penicillin; Z88.2 Allergy status to sulfonamides; Z88.8 Allergy status to other drugs, medicaments and biological substances; Z91.040 Latex allergy status

== ENCOUNTER → 2023-10-24 | Outpatient (CLI) | payer MEDICARE | LOC: M RAD 15:39 | PROVIDERS: ATTEND Internal Medicine Pulmonary Disease | DX: Z87.891 Personal history of nicotine dependence (principal) ==

== ENCOUNTER → 2024-02-02 | Outpatient (REF) | payer OTHER ==
[~2024-02-02] MED LIST changes: -CRAN400C PO; +CRANBERRY400 MG PO
[2024-02-02 18:23] LABS: HEMOGLOBIN A1c 5.3 % (4.0-6.0)
[2024-02-02 18:37] LABS: ALBUMIN 3.8 G/DL (3.2-5.2); ALKALINE PHOSPHATASE 183 U/L (46-116); ALT/SGPT 16 U/L (7.0-40); AST/SGOT 15 U/L (<34); BILIRUBIN,TOTAL 0.3 MG/DL (0.3-1.2); BLOOD UREA NITROGEN 22 MG/DL (9-23); CALCIUM LEVEL 9.5 MG/DL (8.3-10.6); CARBON DIOXIDE LEVEL 27 MMOL/L (20-31); CHLORIDE LEVEL 104 MMOL/L (98-107); CHOLESTEROL LEVEL 182 MG/DL (<200); CHOLESTEROL RISK RATIO 3.78 (<5); CREATININE FOR GFR 0.93 MG/DL (0.55-1.30); GLOMERULAR FILTRATION RATE > 60.0 (>45); GLUCOSE, FASTING 81 MG/DL (74-106); HDL CHOLESTEROL 48.1 MG/DL (>40); LDL CHOLESTEROL 120.7 MG/DL (<100); NON-HDL-C 133.9 MG/DL; POTASSIUM SERUM 4.7 MMOL/L (3.5-5.1); SODIUM LEVEL 138 MMOL/L (136-145); TOTAL PROTEIN 7.5 G/DL (5.7-8.2); TRIGLYCERIDES LEVEL 66 MG/DL (<150)
[2024-02-02 18:38] LABS: THYROID STIMULATING HORMONE 1.305 uIU/ML (0.55-4.78); TOTAL 25(OH) VITAMIN D 39.1 NG/ML (20.0-100.0)
== END ==
LOC: M LAB REF 16:23
PROVIDERS: ATTEND Physician Assistant
DX: I10 Essential (primary) hypertension (principal); F43.23 Adjustment disorder with mixed anxiety and depressed mood; E55.9 Vitamin D deficiency, unspecified

== ENCOUNTER 2024-09-29 02:29 | Emergency (ER) | payer MEDICARE, OTHER ==
[2024-09-29] MEDS: ALBUTEROL SULFATE 2.5MG/0.5ML INH NEB SOLN NEB PRN (02:45)
[2024-09-29 02:52] LABS: VENOUS BASE EXCESS -1.1 (-2.0-2.0); VENOUS HCO3 23.8 MMOL/L (23.0-27.0); VENOUS O2 SATURATION 93.9 % (60.0-80.0); VENOUS PARTIAL PRESSURE CO2 40.4 mmHg (38.0-50.0); VENOUS PARTIAL PRESSURE O2 69.1 mmHg (30.0-50.0); VENOUS PH 7.388 UNITS (7.330-7.430); VENOUS STANDARD HCO3 23.5 MMOL/L
[2024-09-29 02:56] LABS: BASO # 0.1 10^3/uL (0.0-0.2); BASO % 0.6 % (0.0-1.0); EOS # 0.2 10^3/uL (0.0-0.5); EOS % 1.9 % (0.0-3.0); HEMATOCRIT 43.8 % (36.0-47.0); HEMOGLOBIN 14.7 g/dl (12.0-15.5); LYMPH # 1.4 10^3/uL (1.5-5.0); LYMPH % 14.9 % (24.0-44.0); MEAN CORPUSCULAR HEMOGLOBIN 31.6 pg (27.0-33.0); MEAN CORPUSCULAR HGB CONC 33.6 g/dl (32.0-36.5); MEAN CORPUSCULAR VOLUME 94.2 fl (80.0-96.0); MONO # 0.8 10^3/uL (0.0-0.8); MONO % 8.8 % (2.0-8.0); NEUTROPHILS # 6.8 10^3/uL (1.5-8.5); NEUTROPHILS % 73.4 % (36.0-66.0); PLATELET COUNT, AUTOMATED 329 10^3/uL (150-450); RED BLOOD COUNT 4.65 10^6/uL (4.00-5.40); WHITE BLOOD COUNT 9.3 10^3/uL (4.0-10.0)
[2024-09-29 03:23] LABS: ALBUMIN 3.5 G/DL (3.2-5.2); ALKALINE PHOSPHATASE 144 U/L (35-104); ALT/SGPT 21 U/L (7.0-40); AST/SGOT 17 U/L (<34); BILIRUBIN,DIRECT < 0.1 MG/DL (<0.4); BILIRUBIN,TOTAL 0.3 MG/DL (0.3-1.2); BLOOD UREA NITROGEN 16 MG/DL (9-23); CALCIUM LEVEL 9.2 MG/DL (8.3-10.6); CARBON DIOXIDE LEVEL 25 MMOL/L (20-31); CHLORIDE LEVEL 103 MMOL/L (98-107); CREATININE FOR GFR 0.71 MG/DL (0.55-1.30); GLOMERULAR FILTRATION RATE > 60.0 (>45); GLUCOSE, FASTING 116 MG/DL (74-106); POTASSIUM SERUM 4.2 MMOL/L (3.5-5.1); SODIUM LEVEL 138 MMOL/L (136-145); TOTAL PROTEIN 7.6 G/DL (5.7-8.2)
[2024-09-29] MEDS: IPRATROPIUM 0.5MG/ALBUTEROL 2.5MG INH SOL UD 3ML (DUONEB) NEB ONE ×2 (03:42→08:41)
[2024-09-29 07:00] VITALS: TEMP 97.8
[2024-09-29] MEDS: predniSONE 20 MG TAB PO ONE (09:19)
[2024-09-29] MEDS ORDERED: PRED10TA2 PO (09:39)
[2024-09-29] MEDS ORDERED: ALBU2.5V10 NEB (09:39)
[2024-09-29] MEDS ORDERED: AZIT500T5 PO (09:39)
[2024-09-29 10:15] VITALS: BP 127/65; O2SAT 92
== END 2024-09-29 10:39 | disposition home or self-care (01) ==
LOC: EDBD 02:29 → M ED 02:29
DX: J44.1 Chronic obstructive pulmonary disease with (acute) exacerbation (principal); U07.1 COVID-19; J98.11 Atelectasis; F17.210 Nicotine dependence, cigarettes, uncomplicated; Z88.0 Allergy status to penicillin; Z88.1 Allergy status to other antibiotic agents; Z88.2 Allergy status to sulfonamides; Z88.8 Allergy status to other drugs, medicaments and biological substances; Z91.040 Latex allergy status; Z79.2 Long term (current) use of antibiotics; Z79.51 Long term (current) use of inhaled steroids; Z79.52 Long term (current) use of systemic steroids; Z79.899 Other long term (current) drug therapy
CPT/HCPCS: 36415; 71045; 80048; 80076; 82140; 82803; 85025; 87486; 87581; 87633; 87798; 93005; 93041; 94640; 94760; 99285; J7512

== ENCOUNTER 2025-02-09 04:20 | Inpatient (IN) | payer MEDICARE ==
[~2025-02-09] VITALS: Ht 167.6 cm; Wt 61.0 kg
[2025-02-09] VITALS (53 sets, daily range): BP systolic 69–114; BP diastolic 44–67; TEMP 98.1–99; O2SAT 88–99
[~2025-02-09 04:20] MED LIST changes: +AZIT500T5 PO
[2025-02-09] MEDS ORDERED: ALBUTEROL SULFATE 2.5 MG/0.5 ML INH CONCENTRATE NEB SOLN As Ordered ONE (04:30)
[2025-02-09] MEDS: ALBUTEROL SULFATE 2.5 MG/0.5 ML INH CONCENTRATE NEB SOLN NEB ONE ×3 (04:30)
[2025-02-09 04:53] LABS: ABG PARTIAL PRESSURE O2 233.1 mmHg (75.0-100.0)
[2025-02-09 04:57] LABS: ABG BASE EXCESS -15.3 (-2.0-2.0); ABG HCO3 13.4 MMOL/L (22.0-26.0); ABG O2 SATURATION 99.2 % (95.0-99.0); ABG PARTIAL PRESSURE CO2 41.3 mmHg (35.0-45.0); ABG STANDARD HCO3 13.1 MMOL/L. (22.0-26.0); ABG TOTAL CO2 14.6 MMOL/L (23.0-31.0)
[2025-02-09 04:58] LABS: ABG pH (ARTERIAL) 7.128 UNITS (7.350-7.450)
[2025-02-09 05:01] LABS: BASO # 0.1 10^3/uL (0.0-0.2); BASO % 0.5 % (0.0-1.0); EOS # 0.2 10^3/uL (0.0-0.5); EOS % 1.4 % (0.0-3.0); LYMPH # 3.7 10^3/uL (1.5-5.0); LYMPH % 29.7 % (24.0-44.0); MONO # 0.4 10^3/uL (0.0-0.8); MONO % 3.3 % (2.0-8.0); NEUTROPHILS # 7.6 10^3/uL (1.5-8.5); NEUTROPHILS % 61.2 % (36.0-66.0); PLATELET COUNT, AUTOMATED 307 10^3/uL (150-450)
[2025-02-09] MEDS: SODIUM BICARBONATE 8.4% INJ 50ML SYRINGE IV STA (05:33)
[2025-02-09 06:30] LABS: KETONE, URINE AUTO RFX NEGATIVE (NEGATIVE); MUCUS, URINE RFX SMALL (NEGATIVE); NITRITE, URINE AUTO RFX NEGATIVE (NEGATIVE); RBC, URINE AUTO RFX 1 /HPF (0-3); SQUAM EPITHELIAL CELL UR AURFX 3 /HPF (0-6)
[2025-02-09 06:32] LABS: LEUKOCYTE ESTERASE UR AUTO RFX 1+ (NEGATIVE); WBC, URINE AUTO RFX 21 /HPF (0-3)
[2025-02-09 06:56] LABS: BARBITURATES URINE NEGATIVE (NEGATIVE); BENZODIAZEPINES URINE NEGATIVE (NEGATIVE); OPIATES URINE NEGATIVE (NEGATIVE); PHENCYCLIDINE URINE NEGATIVE (NEGATIVE)
[2025-02-09 06:57] LABS: AMPHETAMINES LEVEL URINE POSITIVE (NEGATIVE); CANNABINOIDS URINE POSITIVE (NEGATIVE); COCAINE METABOLITE URINE POSITIVE (NEGATIVE); METHADONE URINE POSITIVE (NEGATIVE)
[2025-02-09 07:16] LABS: ABG BASE EXCESS -3.6 (-2.0-2.0); ABG HCO3 23.6 MMOL/L (22.0-26.0); ABG O2 SATURATION 94.9 % (95.0-99.0); ABG PARTIAL PRESSURE CO2 51.1 mmHg (35.0-45.0); ABG PARTIAL PRESSURE O2 78.7 mmHg (75.0-100.0); ABG STANDARD HCO3 21.4 MMOL/L. (22.0-26.0); ABG TOTAL CO2 25.2 MMOL/L (23.0-31.0); ABG pH (ARTERIAL) 7.283 UNITS (7.350-7.450)
[2025-02-09] MEDS: diphenhydrAMINE 50 MG/ML VIAL IV STA (07:27)
[2025-02-09] MEDS: CEFEPIME HCL 2 GM in DEXTROSE 5% (D5W) ADV/MINI-BAG 50 ML IV ONE (07:44)
[2025-02-09] MEDS: LR 1,000 ML IV SCH (08:37)
[2025-02-09] MEDS: GLYCOPYRROLATE INJ 0.2 MG/ML 2 ML VIAL NEB SCH (08:45)
[2025-02-09 09:07] LABS: CPK CREATINE PHOSPHOKINASE 109.0 U/L (34-145)
[2025-02-09] MEDS ORDERED: ROPI1TAB73 PO (09:19)
[2025-02-09] MEDS ORDERED: SPIR12.9 INH (09:19)
[2025-02-09] MEDS ORDERED: ALBU2.5V10 INH (09:19)
[2025-02-09] MEDS ORDERED: TRAZ-257 PO (09:21)
[2025-02-09] MEDS ORDERED: HOME MED LIST COMPLETE! XX SCH (09:25)
[2025-02-09 09:27] LABS: ALT/SGPT 1379.0 U/L (7.0-40); AST/SGOT 1593.0 U/L (<34); CALCIUM LEVEL 7.5 MG/DL (8.3-10.6); CARBON DIOXIDE LEVEL 25.0 MMOL/L (20-31); CHLORIDE LEVEL 106.0 MMOL/L (98-107); CREATININE FOR GFR 1.2 MG/DL (0.55-1.30); GLOMERULAR FILTRATION RATE 51.2 (>45); MAGNESIUM LEVEL 1.9 MG/DL (1.8-2.4); PHOSPHORUS LEVEL 8.5 MG/DL (2.4-5.1); POTASSIUM SERUM 3.8 MMOL/L (3.5-5.1); SODIUM LEVEL 146.0 MMOL/L (136-145)
[2025-02-09] MEDS: PANTOPRAZOLE 40MG VIAL IV SCH (10:22)
[2025-02-09] MEDS: ACETYLCYSTEINE IV ONE ×3 (10:22→15:59)
[2025-02-09] MEDS: D5W IV ONE ×3 (10:22→15:59)
[2025-02-09 10:36] LABS: HEPATITIS B SURFACE ANTIBODY NEGATIVE (POSITIVE)
[2025-02-09 11:08] LABS: HEPATITIS C VIRUS ABY INDEX < 0.02 INDEX (<0.8)
[2025-02-09] MEDS: HEPARIN SOD 5000 UNITS/ML 1 ML VIAL/SYRINGE SC SCH (14:21)
[2025-02-09] MEDS ORDERED: cefTRIAXone SOD 1 GM in DEXTROSE 5% (D5W) ADV/MINI-BAG 50 ML IV SCH (15:00)
[2025-02-09] MEDS: LevoFLOXacin IV 750 MG in IV 1 EA IV SCH (15:06)
[2025-02-09] MEDS ORDERED: LR 500 ML IV ONE (17:20)
[2025-02-09] MEDS: LACTATED RINGERS IV ONE (18:14)
[2025-02-09 18:42] LABS: ALT/SGPT 1318.0 U/L (7.0-40); AST/SGOT 1434.0 U/L (<34); CALCIUM LEVEL 7.3 MG/DL (8.3-10.6); CARBON DIOXIDE LEVEL 25.0 MMOL/L (20-31); CHLORIDE LEVEL 105.0 MMOL/L (98-107); CREATININE FOR GFR 1.14 MG/DL (0.55-1.30); GLOMERULAR FILTRATION RATE 54.4 (>45); POTASSIUM SERUM 4.1 MMOL/L (3.5-5.1); SODIUM LEVEL 144.0 MMOL/L (136-145)
[2025-02-09] MEDS: NS (Normal Saline) 0.9% 1,000 ML IV SCH (19:18)
[2025-02-09] MEDS: VANCOMYCIN HCL 1,250 MG, VIAL MATE ADAPTER 1 EACH in NS 250 ML IV ONE (19:19)
[2025-02-10] VITALS (59 sets, daily range): BP systolic 47–202; BP diastolic 22–93; TEMP 98.2–100.8; O2SAT 88–97
[2025-02-10 04:26] LABS: ABG BASE EXCESS -7.8 (-2.0-2.0); ABG HCO3 21.8 MMOL/L (22.0-26.0); ABG O2 SATURATION 97.5 % (95.0-99.0); ABG PARTIAL PRESSURE O2 112.5 mmHg (75.0-100.0); ABG STANDARD HCO3 18.2 MMOL/L. (22.0-26.0); ABG TOTAL CO2 23.8 MMOL/L (23.0-31.0)
[2025-02-10] MEDS ORDERED: ISOVUE-370 76% 100 ML VIAL As Ordered ONE (04:29)
[2025-02-10 04:31] LABS: ABG PARTIAL PRESSURE CO2 63.2 mmHg (35.0-45.0); ABG pH (ARTERIAL) 7.156 UNITS (7.350-7.450)
[2025-02-10 04:36] LABS: BASO # 0.0 10^3/uL (0.0-0.2); BASO % 0.2 % (0.0-1.0); EOS # 0.0 10^3/uL (0.0-0.5); EOS % 0.1 % (0.0-3.0); LYMPH # 1.4 10^3/uL (1.5-5.0); LYMPH % 10.7 % (24.0-44.0); MONO # 0.5 10^3/uL (0.0-0.8); MONO % 3.9 % (2.0-8.0); NEUTROPHILS # 11.3 10^3/uL (1.5-8.5); NEUTROPHILS % 84.6 % (36.0-66.0); PLATELET COUNT, AUTOMATED 296 10^3/uL (150-450)
[2025-02-10] MEDS: ALBUTEROL SULFATE 2.5 MG/0.5 ML INH CONCENTRATE NEB SOLN NEB PRN (04:48)
[2025-02-10] MEDS: PIPERACILLIN/TAZOBACTAM SOD 4.5 GM in DEXTROSE 5% (D5W) ADV/MINI-BAG 50 ML IV SCH (05:08)
[2025-02-10 05:32] LABS: ALT/SGPT 1195.0 U/L (7.0-40); AST/SGOT 834.0 U/L (<34); CALCIUM LEVEL 8.1 MG/DL (8.3-10.6); CARBON DIOXIDE LEVEL 28.0 MMOL/L (20-31); CHLORIDE LEVEL 103.0 MMOL/L (98-107); CREATININE FOR GFR 0.98 MG/DL (0.55-1.30); GLOMERULAR FILTRATION RATE 65.3 (>45); POTASSIUM SERUM 3.7 MMOL/L (3.5-5.1); SODIUM LEVEL 142.0 MMOL/L (136-145)
[2025-02-10 05:38] LABS: ABG BASE EXCESS -5.4 (-2.0-2.0); ABG HCO3 24.4 MMOL/L (22.0-26.0); ABG O2 SATURATION 98.7 % (95.0-99.0); ABG PARTIAL PRESSURE O2 149.9 mmHg (75.0-100.0); ABG STANDARD HCO3 20.1 MMOL/L. (22.0-26.0); ABG TOTAL CO2 26.5 MMOL/L (23.0-31.0)
[2025-02-10 05:42] LABS: ABG PARTIAL PRESSURE CO2 68.7 mmHg (35.0-45.0); ABG pH (ARTERIAL) 7.169 UNITS (7.350-7.450)
[2025-02-10] MEDS ORDERED: NOREPINEPHRINE 4 MG IN D5W 250 ML IVBAG (16 MCG/ML) As Ordered ONE (05:47)
[2025-02-10] MEDS ORDERED: FENTANYL DRIP LOCK BOX KEY 1 EACH XX PRN ×2 (05:50→06:05)
[2025-02-10] MEDS ORDERED: fentaNYL CITRATE/NaCl 1,000 MCG in IV 1 EA IV SCH (05:50)
[2025-02-10] MEDS: NOREPINEPHRINE 4MG IN D5 250ML 4 MG in IV 1 EA IV SCH (05:58)
[2025-02-10] MEDS: VASOPRESSIN IN 0.9 % NACL 20 UNIT in IV 1 EA IV SCH (06:00)
[2025-02-10] MEDS ORDERED: VASOPRESSIN IN 0.9 % NACL 20UNIT/100ML INFUS.BTL As Ordered ONE (06:05)
[2025-02-10] MEDS: MIDAZOLAM 100MG/100ML-0.9%NACL 100 MG in IV 1 EA IV SCH (06:12)
[2025-02-10] MEDS: MIDAZOLAM INJ 2 MG/2 ML VIAL IV ONE (06:13)
[2025-02-10] MEDS: SUCCINYLCHOLINE INJ 200MG/10ML VIAL IV STA (06:14)
[2025-02-10] MEDS: NS (Normal Saline) 0.9% 1,000 ML IV SCH ×3 (06:16→21:24)
[2025-02-10] MEDS: fentaNYL CITRATE/NaCl 1,000 MCG in IV 1 EA IV SCH (06:29)
[2025-02-10] MEDS: MIDAZOLAM INJ 2 MG/2 ML VIAL IV PRN (06:29)
[2025-02-10] MEDS: IPRATROPIUM 0.5 MG/ALBUTEROL 2.5 MG INH SOL UD 3 ML NEB SCH (07:20)
[2025-02-10] MEDS: VANCOMYCIN HCL 1,000 MG, VIAL MATE ADAPTER 1 EACH in NS 250 ML IV SCH (08:18)
[2025-02-10 09:15] LABS: INR 1.27
[2025-02-10 09:44] LABS: VENOUS BASE EXCESS -18.4 (-2.0-2.0); VENOUS HCO3 8.7 MMOL/L (23.0-27.0); VENOUS O2 SATURATION 98.6 % (60.0-80.0); VENOUS PARTIAL PRESSURE CO2 25.5 mmHg (38.0-50.0); VENOUS PARTIAL PRESSURE O2 213.6 mmHg (30.0-50.0); VENOUS PH 7.152 UNITS (7.330-7.430); VENOUS STANDARD HCO3 9.9 MMOL/L; VENOUS TOTAL CO2 9.5 MMOL/L (24.0-28.0)
[2025-02-10 10:53] LABS: ABG BASE EXCESS -6.4 (-2.0-2.0); ABG HCO3 19.1 MMOL/L (22.0-26.0); ABG O2 SATURATION 98.8 % (95.0-99.0); ABG PARTIAL PRESSURE CO2 38.1 mmHg (35.0-45.0); ABG PARTIAL PRESSURE O2 134.0 mmHg (75.0-100.0); ABG STANDARD HCO3 19.3 MMOL/L. (22.0-26.0); ABG TOTAL CO2 20.3 MMOL/L (23.0-31.0); ABG pH (ARTERIAL) 7.318 UNITS (7.350-7.450)
[2025-02-10] MEDS: AZITHROMYCIN INJ 500 MG, VIAL MATE ADAPTER 1 EACH in NS 250 ML IV SCH (14:46)
[2025-02-10 16:11] LABS: ALT/SGPT 896.0 U/L (7.0-40); AST/SGOT 502.0 U/L (<34); CALCIUM LEVEL 7.9 MG/DL (8.3-10.6); CARBON DIOXIDE LEVEL 23.0 MMOL/L (20-31); CHLORIDE LEVEL 107.0 MMOL/L (98-107); CREATININE FOR GFR 0.9 MG/DL (0.55-1.30); GLOMERULAR FILTRATION RATE 72.3 (>45); POTASSIUM SERUM 3.9 MMOL/L (3.5-5.1); SODIUM LEVEL 144.0 MMOL/L (136-145)
[2025-02-10] MEDS ORDERED: SODIUM CHLORIDE 0.9% INJ 10 ML SYR IV PRN (16:45)
[2025-02-10] MEDS: SODIUM CHLORIDE 0.9% INJ 10 ML SYR IV SCH (18:24)
[2025-02-10] MEDS: ACETAMINOPHEN *IV* 1,000 MG in IV 1 EA IV PRN (18:25)
[2025-02-11] VITALS (29 sets, daily range): BP systolic 90–153; BP diastolic 53–83; TEMP 97.9–99.3; O2SAT 86–97
[2025-02-11 04:47] LABS: ABG BASE EXCESS -4.2 (-2.0-2.0); ABG HCO3 21.4 MMOL/L (22.0-26.0); ABG O2 SATURATION 97.4 % (95.0-99.0); ABG PARTIAL PRESSURE CO2 41.3 mmHg (35.0-45.0); ABG PARTIAL PRESSURE O2 100.6 mmHg (75.0-100.0); ABG STANDARD HCO3 20.9 MMOL/L. (22.0-26.0); ABG TOTAL CO2 22.7 MMOL/L (23.0-31.0); ABG pH (ARTERIAL) 7.332 UNITS (7.350-7.450)
[2025-02-11 05:28] LABS: BASO # 0.0 10^3/uL (0.0-0.2); BASO % 0.1 % (0.0-1.0); EOS # 0.0 10^3/uL (0.0-0.5); EOS % 0.0 % (0.0-3.0); LYMPH # 0.4 10^3/uL (1.5-5.0); LYMPH % 4.3 % (24.0-44.0); MONO # 0.4 10^3/uL (0.0-0.8); MONO % 4.0 % (2.0-8.0); NEUTROPHILS # 9.0 10^3/uL (1.5-8.5); NEUTROPHILS % 91.1 % (36.0-66.0); PLATELET COUNT, AUTOMATED 213 10^3/uL (150-450)
[2025-02-11 05:51] LABS: ALT/SGPT 777.0 U/L (7.0-40); AST/SGOT 271.0 U/L (<34); CALCIUM LEVEL 8.3 MG/DL (8.3-10.6); CARBON DIOXIDE LEVEL 25.0 MMOL/L (20-31); CHLORIDE LEVEL 109.0 MMOL/L (98-107); CREATININE FOR GFR 0.8 MG/DL (0.55-1.30); GLOMERULAR FILTRATION RATE 83.3 (>45); MAGNESIUM LEVEL 1.7 MG/DL (1.8-2.4); PHOSPHORUS LEVEL 2.1 MG/DL (2.4-5.1); POTASSIUM SERUM 3.1 MMOL/L (3.5-5.1); SODIUM LEVEL 145.0 MMOL/L (136-145)
[2025-02-11] MEDS ORDERED: MAG SULF 1GM/100ML (MAG RUN) 1 GM in IV 1 EA IV ONE (11:00)
[2025-02-11] MEDS: POTASSIUM CHLORIDE 10% LIQ 20MEQ/15ML UDC PO ONE (11:25)
[2025-02-11] MEDS: MAG SULF 1GM/100ML (MAG RUN) 1 GM in IV 1 EA IV ONE (12:37)
[2025-02-11] MEDS: KCL 10MEQ/100ML SWI (KRUN) 10 MEQ in IV 1 EA IV SCH (12:38)
[2025-02-11] MEDS ORDERED: AUGMENTIN BID 400 MG/5 ML SUSP 50 ML BTL PO SCH (13:00)
[2025-02-11] MEDS: POTASSIUM PHOSPHATE INJ 15 MMOL in D5W 250 ML IV ONE (14:13)
[2025-02-11] MEDS: LevoFLOXacin IV 750 MG in IV 1 EA IV SCH (15:03)
[2025-02-11] MEDS: METOPROLOL TART 25 MG TABLET PO SCH (19:03)
[2025-02-11] MEDS: traZODone 100 MG TAB PO SCH (21:14)
[2025-02-11] MEDS ORDERED: guaiFENesin SYRUP 200 MG/10 ML UDC PO PRN (23:25)
[2025-02-11] MEDS: guaiFENesin SYRUP 200 MG/10 ML UDC PO SCH (23:37)
[2025-02-12] VITALS (15 sets, daily range): BP systolic 113–147; BP diastolic 55–73; TEMP 97.2–98.6; O2SAT 90–96
[2025-02-12 05:50] LABS: BASO # 0.0 10^3/uL (0.0-0.2); BASO % 0.1 % (0.0-1.0); EOS # 0.0 10^3/uL (0.0-0.5); EOS % 0.0 % (0.0-3.0); LYMPH # 0.8 10^3/uL (1.5-5.0); LYMPH % 4.8 % (24.0-44.0); MONO # 0.7 10^3/uL (0.0-0.8); MONO % 4.6 % (2.0-8.0); NEUTROPHILS # 14.0 10^3/uL (1.5-8.5); NEUTROPHILS % 89.0 % (36.0-66.0); PLATELET COUNT, AUTOMATED 214 10^3/uL (150-450)
[2025-02-12 06:21] LABS: ALT/SGPT 537 U/L (7.0-40); AST/SGOT 96 U/L (<34); CALCIUM LEVEL 8.5 MG/DL (8.3-10.6); CARBON DIOXIDE LEVEL 23 MMOL/L (20-31); CHLORIDE LEVEL 111 MMOL/L (98-107); CREATININE FOR GFR 0.67 MG/DL (0.55-1.30); GLOMERULAR FILTRATION RATE > 90.0 (>45); POTASSIUM SERUM 4.2 MMOL/L (3.5-5.1); SODIUM LEVEL 142 MMOL/L (136-145)
[2025-02-12] MEDS: SERTRALINE 100 MG TAB PO SCH (08:00)
[2025-02-12 09:54] LABS: MAGNESIUM LEVEL 1.8 MG/DL (1.8-2.4); PHOSPHORUS LEVEL 2.8 MG/DL (2.4-5.1)
[2025-02-12] MEDS: ENOXAPARIN 40 MG/0.4 ML SYRINGE (J1650 PER 10MG) SC SCH (14:41)
[2025-02-12] MEDS: DOCUSATE SODIUM 100 MG CAPSULE PO SCH (20:38)
[2025-02-13] VITALS (7 sets, daily range): BP systolic 138–142; BP diastolic 66–75; TEMP 97–98.2; O2SAT 84–94
[2025-02-13 06:16] LABS: BASO # 0.0 10^3/uL (0.0-0.2); BASO % 0.1 % (0.0-1.0); EOS # 0.0 10^3/uL (0.0-0.5); EOS % 0.0 % (0.0-3.0); LYMPH # 1.8 10^3/uL (1.5-5.0); LYMPH % 18.3 % (24.0-44.0); MONO # 0.7 10^3/uL (0.0-0.8); MONO % 7.2 % (2.0-8.0); NEUTROPHILS # 7.4 10^3/uL (1.5-8.5); NEUTROPHILS % 73.9 % (36.0-66.0); PLATELET COUNT, AUTOMATED 210 10^3/uL (150-450)
[2025-02-13 06:42] LABS: ALT/SGPT 346 U/L (7.0-40); AST/SGOT 36 U/L (<34); C REACTIVE PROTEIN QUANTITATIV 1.02 MG/DL (<1.0); CALCIUM LEVEL 8.5 MG/DL (8.3-10.6); CARBON DIOXIDE LEVEL 31 MMOL/L (20-31); CHLORIDE LEVEL 109 MMOL/L (98-107); CREATININE FOR GFR 0.67 MG/DL (0.55-1.30); GLOMERULAR FILTRATION RATE > 90.0 (>45); POTASSIUM SERUM 4.2 MMOL/L (3.5-5.1); SODIUM LEVEL 146 MMOL/L (136-145)
[2025-02-13] MEDS: PANTOPRAZOLE 40MG TAB PO SCH (08:31)
[2025-02-13] MEDS: SODIUM CHLORIDE HYPERTONIC 3% 4ML NEB SOL INH SCH (14:59)
[2025-02-14 04:14] VITALS: BP 160/76; TEMP 97; O2SAT 92
[2025-02-14 06:40] VITALS: BP 158/72
[2025-02-14 10:25] LABS: BASO # 0.0 10^3/uL (0.0-0.2); BASO % 0.1 % (0.0-1.0); EOS # 0.0 10^3/uL (0.0-0.5); EOS % 0.0 % (0.0-3.0); LYMPH # 0.6 10^3/uL (1.5-5.0); LYMPH % 6.5 % (24.0-44.0); MONO # 0.5 10^3/uL (0.0-0.8); MONO % 5.2 % (2.0-8.0); NEUTROPHILS # 8.1 10^3/uL (1.5-8.5); NEUTROPHILS % 87.7 % (36.0-66.0); PLATELET COUNT, AUTOMATED 213 10^3/uL (150-450)
[2025-02-14 11:01] LABS: C REACTIVE PROTEIN QUANTITATIV 0.80 MG/DL (<1.0); CALCIUM LEVEL 8.6 MG/DL (8.3-10.6); CARBON DIOXIDE LEVEL 32 MMOL/L (20-31); CHLORIDE LEVEL 103 MMOL/L (98-107); CREATININE FOR GFR 0.61 MG/DL (0.55-1.30); GLOMERULAR FILTRATION RATE > 90.0 (>45); POTASSIUM SERUM 4.1 MMOL/L (3.5-5.1); SODIUM LEVEL 142 MMOL/L (136-145)
[2025-02-14] MEDS: MIRALAX *UNIT DOSE* 17 GM PACKET PO SCH (11:27)
[2025-02-14 12:00] VITALS: BP 145/75; TEMP 96.8; O2SAT 95
[2025-02-14 15:05] LABS: HIV 1&2 SCREEN NEGATIVE (NEGATIVE)
[2025-02-14 20:00] VITALS: BP 142/73; TEMP 97.2; O2SAT 90
[2025-02-14] MEDS: SENNA 8.6 MG TAB PO SCH (20:28)
[2025-02-14 22:02] VITALS: O2SAT 84
[2025-02-14 22:05] VITALS: O2SAT 92
[2025-02-15 03:28] VITALS: BP 131/68; TEMP 97; O2SAT 96
[2025-02-15 06:28] LABS: BASO # 0.0 10^3/uL (0.0-0.2); BASO % 0.1 % (0.0-1.0); EOS # 0.1 10^3/uL (0.0-0.5); EOS % 1.7 % (0.0-3.0); LYMPH # 1.5 10^3/uL (1.5-5.0); LYMPH % 17.4 % (24.0-44.0); MONO # 0.7 10^3/uL (0.0-0.8); MONO % 8.7 % (2.0-8.0); NEUTROPHILS # 6.0 10^3/uL (1.5-8.5); NEUTROPHILS % 71.6 % (36.0-66.0); PLATELET COUNT, AUTOMATED 219 10^3/uL (150-450)
[2025-02-15 07:02] LABS: CALCIUM LEVEL 8.7 MG/DL (8.3-10.6); CARBON DIOXIDE LEVEL 33 MMOL/L (20-31); CHLORIDE LEVEL 102 MMOL/L (98-107); CREATININE FOR GFR 0.61 MG/DL (0.55-1.30); GLOMERULAR FILTRATION RATE > 90.0 (>45); MAGNESIUM LEVEL 1.5 MG/DL (1.8-2.4); POTASSIUM SERUM 3.8 MMOL/L (3.5-5.1); SODIUM LEVEL 143 MMOL/L (136-145)
[2025-02-15] MEDS: predniSONE 20 MG TAB PO SCH (09:25)
[2025-02-15 09:27] VITALS: BP 152/76
[2025-02-15] MEDS ORDERED: PRED10TA2 PO (11:45)
[2025-02-15] MEDS ORDERED: LEVO1TAB40 PO (11:45)
[2025-02-15 12:00] VITALS: BP 142/77; TEMP 97.3; O2SAT 93
== END 2025-02-15 16:50 | disposition home or self-care (01) | DRG 917 ==
LOC: EDBD 04:20 → M ED 04:20 → M ED INP 08:14 → M ICU 09:00 → M MSPAV 02-12 15:14
PROVIDERS: ADMIT Internal Medicine Pulmonary Disease; ATTEND Internal Medicine
PROC: 0BH17EZ Insertion of Endotracheal Airway into Trachea, Via Natural or Artificial Opening (ICD-10-PCS; principal; 2025-02-09)
PROC: 5A1945Z Respiratory Ventilation, 24-96 Consecutive Hours (ICD-10-PCS; 2025-02-09)
PROC: B246ZZZ Ultrasonography of Right and Left Heart (ICD-10-PCS; 2025-02-11)
DX: T40.3X1A Poisoning by methadone, accidental (unintentional), initial encounter (principal); G92.8 Other toxic encephalopathy; J96.02 Acute respiratory failure with hypercapnia; J69.0 Pneumonitis due to inhalation of food and vomit; J96.01 Acute respiratory failure with hypoxia; R78.81 Bacteremia; N39.0 Urinary tract infection, site not specified; E87.29 Other acidosis; J44.1 Chronic obstructive pulmonary disease with (acute) exacerbation; B95.5 Unspecified streptococcus as the cause of diseases classified elsewhere; R68.0 Hypothermia, not associated with low environmental temperature; G89.29 Other chronic pain; E83.51 Hypocalcemia; B96.1 Klebsiella pneumoniae [K. pneumoniae] as the cause of diseases classified elsewhere; E83.39 Other disorders of phosphorus metabolism; K59.09 Other constipation; M54.50 Low back pain, unspecified; I10 Essential (primary) hypertension; F41.9 Anxiety disorder, unspecified; R33.9 Retention of urine, unspecified; Z90.49 Acquired absence of other specified parts of digestive tract; Z79.899 Other long term (current) drug therapy; Z88.0 Allergy status to penicillin; Z88.1 Allergy status to other antibiotic agents; Z88.2 Allergy status to sulfonamides; Z88.8 Allergy status to other drugs, medicaments and biological substances; Z91.040 Latex allergy status

== ENCOUNTER → 2025-04-23 | Outpatient (CLI) | payer MEDICARE ==
[~2025-04-23] MED LIST changes: +LEVO1TAB40 PO; +ROPI1TAB73 PO; +SPIR12.9 INH; +TRAZ-257 PO
== END ==
LOC: M PLAIMG 09:25
PROVIDERS: ATTEND Internal Medicine Pulmonary Disease
DX: J44.9 Chronic obstructive pulmonary disease, unspecified (principal); R91.8 Other nonspecific abnormal finding of lung field